=== PATIENT | female | born 1970 | race Caucasian/White ===

== ENCOUNTER 2022-01-11 12:16 | Emergency (ER) | payer OTHER, SELFPAY ==
--- NOTE | ~2022-01-11 | XR_ITS ---
EXAMINATION: XR CHEST CLINICAL INFORMATION: SOB COMPARISON: None TECHNIQUE: Frontal view of the chest was obtained. FINDINGS: No significant abnormality is noted involving the heart, lungs, mediastinum, bony thorax or soft tissues. XR/XR chest 1V IMPRESSION: Unremarkable chest examination.
[2022-01-11 12:22] VITALS: BP 140/80; BP 140/90; PULSE 83; PULSE 84; RESP 18; O2SAT 100; BMI 40.1
--- NOTE | 2022-01-11 12:46 | ECG_ITS ---
Test Reason : GENERAL MEDICAL Blood Pressure : / mmHG Vent. Rate : 088 BPM Atrial Rate : 088 BPM P-R Int : 152 ms QRS Dur : 076 ms QT Int : 390 ms P-R-T Axes : 012 012 029 degrees QTc Int : 471 ms Normal sinus rhythm Normal ECG No significant changes when compared with the previous EKG of 06 sep 2017 Referred By: Anisha Root Electronically Signed By:DAWN CORDOBA
--- NOTE | 2022-01-11 12:53 | ED.URI ---
HPI - URI/Sore Throat General Chief Complaint: Upper Respiratory Symptoms Stated Complaint: DIFF BREATHIN,+COVID Time Seen by Provider: 01/11/22 12:25 Source: patient and EMS Mode of arrival: EMS Limitations: no limitations History of Present Illness HPI Narrative: 51-year-old female with a history of anemia, high blood pressure here with reports of chest pressure, palpitations and difficulty breathing which occurred just prior to arrival and is now improving. Patient tells me that she started with nasal congestion, sore throat on Thursday. On Thursday. She did a home test which is positive for COVID. On she had a telehealth visit with her primary care doctor and was prescribed Paxlovid. Patient has taken 4 doses of Paxilovid at this point. She tells me that she has been doing well until today. She has had no difficulty breathing or chest pain or fever until this episode which occurred just prior to arrival. Patient tells me she was at rest when the symptoms started. She received some oxygen from the ambulance and tells me that this helps with her symptoms. no leg swelling or pain Received 1 J&J vaccine, 1 pfizer vaccine Related Data Allergies Allergy/AdvReac Type Severity Reaction Status Date / Time No Known Allergies Allergy Unverified 01/11/22 12:22 Review of Systems Review of Systems: Yes all other systems are reviewed and are negative Constitutional: Constitutional: Reports no additional constitutional complaints, Denies body ache(s), Denies chills, Denies fever(s), Denies headache(s) and Denies weakness Eyes: Eyes: Reports no additional eye complaints and Denies change in vision ENT: Reports system reviewed and no additional complaints, except as documented, Denies dizziness, Denies headache(s), Denies nasal congestion, Denies nasal discharge and Denies neck pain Cardiovascular: Cardiovascular: Reports no additional cardiovascular complaints, Reports chest pain, Denies leg edema, Reports palpitations and Denies dyspnea Respiratory: Respiratory: Reports no additional respiratory complaints, Denies cough and Denies dyspnea Gastrointestinal: Gastrointestinal: Reports no additional gastrointestinal complaints, Denies abdominal pain, Denies diarrhea, Denies nausea and Denies vomiting Genitourinary: Genitourinary: Reports no additional female genitourinary complaints and Denies urinary incontinence Musculoskeletal: Musculoskeletal: Reports no additional musculoskeletal complaints, Denies back pain, Denies arthralgias, Denies joint swelling, Denies neck pain, Denies numbness and Denies tingling Integumentary/Breasts: Skin/Breast: Reports system reviewed and no additional complaints, except as docu and Denies rash Neurologic: Reports system reviewed and no additional complaints, except as documented, Denies Abnormal speech present, Denies dizziness, Denies headache(s), Denies numbness, Denies tingling and Denies weakness Endocrine: Endocrine: Reports palpitations [facility] Past Medical History Attestation statement: The following information was validated with the patient. Source: old records reviewed and nursing notes reviewed Social History Social History Advance Directives: No Advance Directives Information Provided: No Physical Exam Vital Signs: Vital Signs: Last Vital Signs Pulse 83 01/11/22 12:22 Resp 18 01/11/22 12:22 BP 140/90 H 01/11/22 12:22 Pulse Ox 100 01/11/22 14:00 BMI result Body Mass Index 40.1 Const: General: cooperative, healthy appearing, comfortable and no acute distress Orientation/consciousness: patient oriented x3 Limitations: no limitations HEENT: Head: Yes normal to inspection Ears: hearing grossly normal bilaterally and TM's normal bilaterally General nose exam: Normal external nose present Face and sinus: Yes normal facial exam Mouth: Normal oral and palatal mucosa present Throat: Yes posterior oropharynx normal, Yes tonsils normal and Yes uvula midline Eyes: General: appearance normal, both eyes and all related structures Pupils: Equal, round and reactive pupils present Neck: Neck: Yes normal visual inspection Chest: Chest palpation & inspection: normal inspection of the chest Resp: Effort & Inspection: normal respiratory effort Auscultation: clear to auscultation bilaterally Cardio: Rate: regular rate Rhythm: regular rhythm Peripheral pulses: Peripheral pulses 2+ throughout GI: Inspection: Yes normal to inspection Palpation (GI): Soft to palpation and nontender Auscultation: normal bowel sounds Back/Spine/Pelvis: Thoracic/Lumbar Spine: thoracic and lumbar spine normal to inspection Skin: General skin exam: no rashes or lesions noted Neuro: General: patient oriented x3, no focal motor deficits and normal sensation to monofilament Cranial nerves: Yes Equal, round and reactive pupils present Cognition (Neuro): normal cognition Speech: No Abnormal speech present Gait exam (Neuro): Normal gait present Motor exam (neuro): 5/5 motor strength present throughout Extrem: General: Yes normal to inspection, Yes no pedal edema and Yes no calf tenderness Course Course Course Narrative: 51 yo female known COVID + here with episode of chest pain, palpitations, shortness of breath which occurred just [employer] and is now feeling better after receiving some supplemental oxygen by EMS. The patient's vitals are stable. She is speaking full sentences. Lungs are clear. Will check chest x-ray, EKG, labs. Reevaluation(s) Reevaluation #1: Labs are unremarkable. Chest x-ray and EKG showed no acute finding. Plan to repeat troponin and if negative anticipate discharge home. Time: 15:15 Reevaluation #2: Repeat troponin negative. Reviewed worrisome sign/symptoms with patient and when to return to ED. Comfortable with discharge home. Time: 17:00 MDM - URI/Sore Throat MDM Narrative Medical decision making narrative: Pneumonia, ACS(low concern with troponin negative x2, normal EKG) myocarditis, PE(low concern with negative D-dimer, no hypoxia, no tachypnea, no tachycardia and no clinical findings concerning for DVT) Medical Records Attestation: I reviewed the patient's medical records. Lab Data Attestation: I reviewed the patient's lab results. Result diagrams: 01/11/22 13:51 01/11/22 13:51 Labs: Lab Results 01/11/22 01/11/22 01/11/22 Range/Units 13:51 13:51 13:51 WBC 2.8 L (4.8-10.8) X10*3/uL RBC 3.92 L (4.20-5.50) X10*6/uL Hgb 11.2 L (12.0-16.0) g/dl Hct 33.7 L (37.0-47.0) % MCV 86.0 (80.0-98.0) fL MCH 28.6 (27.0-33.0) pg MCHC 33.2 (31.0-35.0) g/dl RDW 12.7 (11.0-16.0) % Plt Count 392 (160-400) X10*3/uL MPV 9.7 (9.4-12.3) fL Immature Gran % (Auto) 0.4 (0.0-0.4) % Neut % (Auto) 53.7 (45-73) % Lymph % (Auto) 33.7 (20-40) % [place] % (Auto) 9.3 (2-11) % Eos % (Auto) 2.5 (0-4) % Baso % (Auto) 0.4 (0-2) % Lymph # (Auto) 0.9 L (1.2-4.9) X10*3/uL [place] # (Auto) 0.3 (0.1-1.2) X10*3/uL Eos # (Auto) 0.1 (0.0-0.4) X10*3/uL Baso # (Auto) 0.0 (0.0-0.2) X10*3/uL Abs Immat Gran (auto) 0.01 (0.00-0.03) X10*3/uL Absolute Neuts (auto) 1.5 L (2.0-8.3) x10*3/uL Absolute Nucleated RBC 0.000 (0.0-0.012) X10*3/uL Nucleated RBC % (auto) 0.0 (0.0-0.2) /100WBC PT (9.9-13.0) SEC INR (0.9-1.1) D-Dimer High Sensitivty NG/ML Sodium 139 (135-145) mmol/L Potassium 3.4 (3.3-5.1) mmol/L Chloride 102 (96-108) mmol/L Carbon Dioxide 28 (22-29) mmol/L Anion Gap 12 (12-20) BUN 9 (9-16) mg/dL Creatinine 0.76 (0.5-1.4) mg/dL Estim Creat Clear Calc 99.2 Estimated GFR > 60 Random Glucose 104 (60-115) mg/dL Calcium 9.5 (8.4-10.2) mg/dL Magnesium 2.1 (1.6-2.6) mg/dL Total Bilirubin 0.2 (0.0-1.0) mg/dL Direct Bilirubin < 0.2 (0.0-0.5) mg/dL AST 17 (5-31) U/L ALT 22 (0-31) U/L Alkaline Phosphatase 51 (39-117) U/L Troponin I High Sens < 3.5 (<3.5-17.0) ng/L B-Natriuretic Peptide (<100) pg/mL Total Protein 7.3 (6.5-8.0) g/dL Albumin 4.0 (3.5-5.0) g/dL 01/11/22 01/11/22 01/11/22 Range/Units 13:51 13:51 16:15 WBC (4.8-10.8) X10*3/uL RBC (4.20-5.50) X10*6/uL Hgb (12.0-16.0) g/dl Hct (37.0-47.0) % MCV (80.0-98.0) fL MCH (27.0-33.0) pg MCHC (31.0-35.0) g/dl RDW (11.0-16.0) % Plt Count (160-400) X10*3/uL MPV (9.4-12.3) fL Immature Gran % (Auto) (0.0-0.4) % Neut % (Auto) (45-73) % Lymph % (Auto) (20-40) % [place] % (Auto) (2-11) % Eos % (Auto) (0-4) % Baso % (Auto) (0-2) % Lymph # (Auto) (1.2-4.9) X10*3/uL [place] # (Auto) (0.1-1.2) X10*3/uL Eos # (Auto) (0.0-0.4) X10*3/uL Baso # (Auto) (0.0-0.2) X10*3/uL Abs Immat Gran (auto) (0.00-0.03) X10*3/uL Absolute Neuts (auto) (2.0-8.3) x10*3/uL Absolute Nucleated RBC (0.0-0.012) X10*3/uL Nucleated RBC % (auto) (0.0-0.2) /100WBC PT 11.7 (9.9-13.0) SEC INR 1.0 (0.9-1.1) D-Dimer High Sensitivty < 150 NG/ML Sodium (135-145) mmol/L Potassium (3.3-5.1) mmol/L Chloride (96-108) mmol/L Carbon Dioxide (22-29) mmol/L Anion Gap (12-20) BUN (9-16) mg/dL Creatinine (0.5-1.4) mg/dL Estim Creat Clear Calc Estimated GFR Random Glucose (60-115) mg/dL Calcium (8.4-10.2) mg/dL Magnesium (1.6-2.6) mg/dL Total Bilirubin (0.0-1.0) mg/dL Direct Bilirubin (0.0-0.5) mg/dL AST (5-31) U/L ALT (0-31) U/L Alkaline Phosphatase (39-117) U/L Troponin I High Sens < 3.5 (<3.5-17.0) ng/L B-Natriuretic Peptide < 10 (<100) pg/mL Total Protein (6.5-8.0) g/dL Albumin (3.5-5.0) g/dL Imaging Data Chest x-ray: Attestation: I personally reviewed and interpreted this imaging study as follows: Radiologist's impression: EXAMINATION: XR CHEST CLINICAL INFORMATION: SOB COMPARISON: None TECHNIQUE: Frontal view of the chest was obtained. FINDINGS: No significant abnormality is noted involving the heart, lungs, mediastinum, bony thorax or soft tissues. XR/XR chest 1V IMPRESSION: Unremarkable chest examination. ? ECG Data Attestation: I personally reviewed and interpreted this ECG as follows: ECG interpretation date: 01/11/22 ECG interpretation time: 13:27 Interpretation: Normal sinus rhythm with a rate 88, normal OH, normal QRS, normal QT Discharge Plan Discharge Clinical Impression: COVID-19 Patient Disposition: Home, Self-Care Instructions: COVID-19 (Coronavirus Disease 2019) (ED) Additional Instructions: Continue your Paxlovid Increase fluids, rest Motrin or Tylenol for pain or fever as needed Your blood work, EKG and chest x-ray are all very reassuring today. Consider buying a pulse oximeter and monitor her oxygen saturation at home. Seek care your oxygen saturation is less than 90%, you have worsening shortness of breath or chest pain. Referrals: Physician,Unknown J [Primary Care Provider] - 1 week (as needed)
[2022-01-11 13:58] LABS: MANUAL DIFF FLAG NO
[2022-01-11 14:00] VITALS: O2SAT 100
[2022-01-11 14:01] LABS: Basophils Percent Auto 0.4 % (0-2); Eosinophils Absolute Auto 0.1 X10*3/uL (0.0-0.4); Eosinophils Percent Auto 2.5 % (0-4); Hematocrit 33.7 % (37.0-47.0); Hemoglobin 11.2 g/dl (12.0-16.0); Imm Gran Abs Auto 0.01 X10*3/uL (0.00-0.03); Imm Gran Pct Auto 0.4 % (0.0-0.4); Lymphocytes Absolute Auto 0.9 X10*3/uL (1.2-4.9); Lymphocytes Percent Auto 33.7 % (20-40); Mean Corpuscular HGB Conc 33.2 g/dl (31.0-35.0); Mean Corpuscular Hemoglobin 28.6 pg (27.0-33.0); Mean Platelet Volume 9.7 fL (9.4-12.3); Monocytes Absolute Auto 0.3 X10*3/uL (0.1-1.2); Monocytes Percent Auto 9.3 % (2-11); Neutrophils Absolute Auto 1.5 x10*3/uL (2.0-8.3); Neutrophils Percent Auto 53.7 % (45-73); Platelet Count 392 X10*3/uL (160-400); Red Blood Count 3.92 X10*6/uL (4.20-5.50); Red Cell Distribution Width 12.7 % (11.0-16.0); White Blood Count 2.8 X10*3/uL (4.8-10.8)
[2022-01-11 14:07] LABS: Prothrombin Time 11.7 SEC (9.9-13.0)
[2022-01-11 14:19] LABS: Alanine Aminotransferase 22 U/L (0-31); Alkaline Phosphatase 51 U/L (39-117); Anion Gap 12 (12-20); Aspartate Amino Transferase 17 U/L (5-31); Bilirubin Direct < 0.2 mg/dL (0.0-0.5); Bilirubin Total 0.2 mg/dL (0.0-1.0); Blood Urea Nitrogen 9 mg/dL (9-16); Calcium 9.5 mg/dL (8.4-10.2); Carbon Dioxide 28 mmol/L (22-29); Chloride 102 mmol/L (96-108); Creatinine Clr Calc Pharmacy 99.2; Estimated Glomerular Filt Rate > 60; Glucose Random 104 mg/dL (60-115); Magnesium 2.1 mg/dL (1.6-2.6); Potassium 3.4 mmol/L (3.3-5.1); Sodium 139 mmol/L (135-145); Total Protein 7.3 g/dL (6.5-8.0)
[2022-01-11 14:24] LABS: B Type Natriuretic Peptide < 10 pg/mL (<100); Troponin-I High Sensitivity < 3.5 ng/L (<3.5-17.0)
[2022-01-11 14:32] LABS: D Dimer High Sensitivity < 150 NG/ML
[2022-01-11 16:39] LABS: Troponin-I High Sensitivity < 3.5 ng/L (<3.5-17.0)
== END 2022-01-11 17:20 | disposition home or self-care (01) ==
PROVIDERS: Nurse Practitioner Family; Emergency Provider Emergency Medicine Emergency Medical Services
DX: U07.1 COVID-19 (principal); R06.02 Shortness of breath; R07.89 Other chest pain; R00.2 Palpitations; Z79.899 Other long term (current) drug therapy
CPT/HCPCS: 36415; 71045; 80048; 80076; 83735; 83880; 84484; 85025; 85379; 85610; 93005; 99283; 99284

== ENCOUNTER 2023-11-13 19:11 | Emergency (ER) | payer OTHER, SELFPAY ==
--- NOTE | ~2023-11-13 | US_ITS ---
EXAMINATION: US ABDOMEN LIMITED CLINICAL INFORMATION: Right upper quadrant pain. History of gallstones. COMPARISON: None available. TECHNIQUE: Real-time imaging of the right upper quadrant abdominal viscera. Color Doppler exam was utilized FINDINGS: PANCREAS: Bowel gas LIVER: There is diffuse increased echogenicity of the parenchyma of liver consistent with fatty change. No focal hepatic lesion. There is no intrahepatic biliary duct dilatation seen. GALLBLADDER: Gallstones fill the gallbladder. Gallbladder is contracted. There is strong posterior acoustic shadowing. No pericholecystic fluid. COMMON BILE DUCT: Normal in caliber measuring 0.2 cm in diameter. RIGHT KIDNEY: Normal. No hydronephrosis. No renal calculi or focal parenchymal lesions. The kidney measures 10.7 cm in maximum dimension. FREE FLUID: None. US/US abdomen limited IMPRESSION: 1. Diffuse fatty change of liver. 2. Cholelithiasis. No acute change of gallbladder wall. No bile duct dilatation.
--- NOTE | 2023-11-13 19:14 | ECG_ITS ---
Test Reason : chest pain Blood Pressure : / mmHG Vent. Rate : 095 BPM Atrial Rate : 095 BPM P-R Int : 152 ms QRS Dur : 076 ms QT Int : 366 ms P-R-T Axes : 048 023 041 degrees QTc Int : 459 ms Normal sinus rhythm Septal infarct , age undetermined Abnormal ECG When compared with ECG of 11-JAN-2022 13:27, No significant change was found Referred By: Rosa Maria Bond Electronically Signed By:DAWN CORDOBA
--- NOTE | 2023-11-13 19:35 | ED_ITS ---
HPI - Abdominal Pain General Chief Complaint: Abdominal Pain Stated Complaint: chest and back pain, SOB Time Seen by Provider: 11/13/23 22:08 History of Present Illness HPI narrative: The patient is a 53-year-old woman who says that she has been having problems with right upper quadrant abdominal pain for almost 2 months. She says that she started to experience these symptoms at the end of August. She made an appointment with her primary care doctor to discuss these symptoms and ultimately had a CT scan done through [facility] that was done last week. This showed gallstones and a fatty liver she says. During these weeks she says that she has had near constant pain in the right upper quadrant that is worse when she eats. Over the last 4 days the pain has been much more constant and severe and she therefore apartment tonight because it was significantly worse. He is that she feels the pain in the right upper quadrant of her abdomen and in her epigastrium. She also feels that it is somewhat worse when she takes a deep breath. She says that essentially constant pain for a long time. Related Data Home Medications Medication Instructions Recorded Confirmed ferrous sulfate 325 mg (65 mg 325 mg PO DAILY 11/18/23 11/18/23 iron) tablet (Feosol) triamterene 37.5 1 tab PO DAILY 11/18/23 11/18/23 mg-hydrochlorothiazide 25 mg tablet Previous Rx's Medication Instructions Recorded morphine 15 mg immediate release 15 mg PO Q6H PRN pain #12 tabs 11/14/23 tablet Allergies Allergy/AdvReac Type Severity Reaction Status Date / Time latex AdvReac Unknown Verified 11/18/23 13:26 Review of Systems Review of Systems Yes all other systems are reviewed and are negative [facility] Past Medical History Surgical History H/O bilateral breast reduction surgery (~2011) Family History Family History Mother Cancer Father Cancer Family/Other Cancer Social History Social History Alcohol intake: never Patient Tobacco Use Status: Never used Tobacco Physical Exam ED Vital Signs: Vital Signs - 24 hr 11/13/23 19:38 11/13/23 21:59 11/14/23 00:08 Temperature 97.8 F 98.3 F 98.4 F Pulse Rate 99 88 84 Respiratory Rate 16 18 16 Blood Pressure 153/88 H 150/95 H 149/95 H Pulse Oximetry 96 99 100 Oxygen Delivery Method Room Air Room Air Room Air 11/14/23 01:14 Temperature 98.1 F Pulse Rate 90 Respiratory Rate 17 Blood Pressure 143/92 H Pulse Oximetry 94 Oxygen Delivery Method Room Air BMI result Body Mass Index 42.6 Const Other: The patient is awake and alert. She does not appear overtly toxic or in distress. She does not seem in any respiratory difficulty. She does not look obviously uncomfortable HENND Other: The face is symmetrical. ?Mucous membranes moist. Eyes Other: Pupils are round equal, conjunctivae are clear, extraocular movements intact Neck Other: No JVD Resp Effort & Inspection: normal respiratory effort Auscultation: clear to auscultation bilaterally Cardio Rate: regular rate Rhythm: regular rhythm Heart sounds: S1 normal heart sound present and S2 normal heart sound present GI Other: The patient has a right upper quadrant and epigastric tenderness Skin Other: Skin is dry and unremarkable Neuro Other: Awake, alert, normal mental status, grossly neurologically intact Extrem Other: No obvious calf asymmetry or unilateral tender Course Course Course Narrative: This is a rapid medical exam: Additional HPI, ROS, PE not included below will be deferred to primary provider. RUQ abdominal pain radiating from right anterior to posterior ribs causing shortness of breath and chest pain. States that her pain has been increased today. She also reports concerns for BRBPR with known hemorrhoids and anal fissure. Reports increased diarrhea over the past several days. CT abd/pelvis completed several days ago with cholelithiasis noted without cholecystitis. Medical Decision Making Medical Decision Making [facility] Narrative: The patient is here with right upper quadrant pain that certainly could represent pain related to gallstones. She describes having had right upper quadrant pain for several weeks and an outpatient CT scan last week that showed gallstones. However the patient is description, particularly the timing of her symptoms, does not seem completely consistent with typical biliary colic. Her pain seems very constant rather than occasional and intermittent. An ultrasound today shows gallstones but no signs of cholecystitis or other acute complication. Her lipase is normal, her LFTs are normal. Her white count and differential are normal. CRP is only minimally elevated. Ultimately I also ran a D-dimer as well. This was undetectable. Ultimately, although the patient has description of the time course of her symptoms is atypical for biliary colic I suspect that her symptoms may be related to her gallstones. She looks well enough for outpatient management. She will be given a prescription for oxycodone that she may use as needed. She should follow a low-fat diet and take it easy. She should contact the General surgery office on Thursday to discuss a possible cholecystectomy. Lab Data 11/13/23 19:32 11/13/23 19:32 Labs: Lab Results 11/13/23 11/13/23 Range/Units 19:32 23:24 WBC 5.2 (4.8-10.8) X10*3/uL RBC 3.57 L (4.20-5.50) X10*6/uL Hgb 10.5 L (12.0-16.0) g/dl Hct 31.0 L (37.0-47.0) % MCV 86.8 (80.0-98.0) fL MCH 29.4 (27.0-33.0) pg MCHC 33.9 (31.0-35.0) g/dl RDW 13.5 (11.0-16.0) % Plt Count 399 (160-400) X10*3/uL MPV 9.6 (9.4-12.3) fL Immature Gran % (Auto) 0.4 (0.0-0.4) % Neut % (Auto) 59.1 (45-73) % Lymph % (Auto) 30.8 (20-40) % [place] % (Auto) 6.0 (2-11) % Eos % (Auto) 3.3 (0-4) % Baso % (Auto) 0.4 (0-2) % Lymph # (Auto) 1.6 (1.2-4.9) X10*3/uL [place] # (Auto) 0.3 (0.1-1.2) X10*3/uL Eos # (Auto) 0.2 (0.0-0.4) X10*3/uL Baso # (Auto) 0.0 (0.0-0.2) X10*3/uL Abs Immat Gran (auto) 0.02 (0.00-0.03) X10*3/uL Absolute Neuts (auto) 3.1 (2.0-8.3) x10*3/uL Absolute Nucleated RBC 0.000 (0.0-0.012) X10*3/uL Nucleated RBC % (auto) 0.0 (0.0-0.2) /100WBC D-Dimer High Sensitivty < 150 NG/ML Sodium 139 (135-145) mmol/L Potassium 3.5 (3.3-5.1) mmol/L Chloride 103 (96-108) mmol/L Carbon Dioxide 27 (22-29) mmol/L Anion Gap 13 (12-20) BUN 13 (9-16) mg/dL Creatinine 0.86 (0.5-1.4) mg/dL Estim Creat Clear Calc 88.6 Estimated GFR > 60 Random Glucose 109 (60-115) mg/dL Calcium 9.7 (8.4-10.2) mg/dL Total Bilirubin 0.2 (0.0-1.0) mg/dL AST 15 (5-31) U/L ALT 18 (0-31) U/L Alkaline Phosphatase 45 (39-117) U/L Troponin I High Sens < 2.7 (<3.5-17.0) ng/L C-Reactive Protein 1.05 H (< or = 0.50) mg/dL Total Protein 7.1 (6.5-8.0) g/dL Albumin 4.1 (3.5-5.0) g/dL Lipase 17 (8-78) U/L Urine Color Yellow Urine Appearance Cloudy Urine pH 6.0 (5.0-9.0) Ur Specific [place] 1.025 (1.005-1.025) Urine Protein Negative (Neg-Trace) mg/dL Urine Glucose (UA) Negative (Negative) mg/dL Urine Ketones Negative (Negative) mg/dL Urine Blood Negative (Negative) Urine Nitrite Negative (Negative) Ur Leukocyte Esterase Trace H (Negative) Urine RBC 0-2 (0-2) /HPF Urine WBC 6-10 H (0-5) /HPF Ur Squamous Epith Cells 11-20 (0-2) /HPF Urine Bacteria 3+ (None Seen) Hyaline Casts 3-5 (0-2) /LPF Medications Administered Discontinued Medications Generic Name Dose Route Start Last Admin Trade Name Freq PRN Reason Stop Dose Admin Acetaminophen 650 mg 11/13/23 19:43 11/13/23 19:49 Acetaminophen 325 Mg Tablet PO 11/13/23 19:44 650 mg ONCE ONE Administration Ibuprofen 600 mg 11/13/23 19:43 11/13/23 19:49 Ibuprofen 600 Mg Tablet PO 11/13/23 19:44 600 mg ONCE ONE Administration Ketorolac Tromethamine 30 mg 11/13/23 22:33 11/13/23 23:40 Ketorolac Tromethamine 30 Mg/Ml Vial IM 11/13/23 22:34 30 mg ONCE ONE Administration Discharge Plan Discharge Clinical Impression: Symptomatic cholelithiasis, Right upper quadrant abdominal pain Patient Disposition: Home, Self-Care Instructions: Gallstones (ED) Additional Instructions: Your ultrasound today confirms that you have gallstones. There is no sign of complications of these gallstones today Additionally there is no suggestion of any other concerning process. Please continue to follow a low-fat diet and eat very small meals. You may use acetaminophen and ibuprofen as needed for discomfort. I have also sent a prescription for morphine tablets which you may use when you really need additional pain control. Please call Dr. Lagos's office on Thursday to set up an appointment to discuss your situation with the general surgeon. Return to the emergency room if fever or significantly worse otherwise. Prescriptions: New morphine 15 mg tablet 15 mg PO Q6H PRN (Reason: pain) Qty: 12 0RF Rx Instructions: Partial Fill upon patient request. No Action triamterene-hydrochlorothiazid 37.5-25 mg tablet 1 tab PO DAILY ferrous sulfate [Feosol] 325 mg (65 mg iron) tablet 325 mg PO DAILY Referrals: Alejandro Lagos MD [Physician] - (symptomatic cholelithiasis) Gladys Blanco MD [Physician] - (symptomatic cholelithiasis) Stand Alone Forms: Work/School Release Interventions: ED Discharge Assessment Last Done: 11/14/23 01:14 Discharge Date/Time: 11/14/23 01:16
[2023-11-13 19:37] LABS: MANUAL DIFF FLAG NO
[2023-11-13 19:38] VITALS: BP 153/88; PULSE 99; RESP 16; TEMP 36.6; O2SAT 96; BMI 42.6
[2023-11-13 19:38] LABS: Basophils Percent Auto 0.4 % (0-2); Eosinophils Absolute Auto 0.2 X10*3/uL (0.0-0.4); Eosinophils Percent Auto 3.3 % (0-4); Hemoglobin 10.5 g/dl (12.0-16.0); Imm Gran Abs Auto 0.02 X10*3/uL (0.00-0.03); Imm Gran Pct Auto 0.4 % (0.0-0.4); Lymphocytes Absolute Auto 1.6 X10*3/uL (1.2-4.9); Lymphocytes Percent Auto 30.8 % (20-40); Mean Corpuscular HGB Conc 33.9 g/dl (31.0-35.0); Mean Corpuscular Hemoglobin 29.4 pg (27.0-33.0); Mean Corpuscular Volume 86.8 fL (80.0-98.0); Mean Platelet Volume 9.6 fL (9.4-12.3); Monocytes Absolute Auto 0.3 X10*3/uL (0.1-1.2); Neutrophils Absolute Auto 3.1 x10*3/uL (2.0-8.3); Neutrophils Percent Auto 59.1 % (45-73); Platelet Count 399 X10*3/uL (160-400); Red Blood Count 3.57 X10*6/uL (4.20-5.50); Red Cell Distribution Width 13.5 % (11.0-16.0); White Blood Count 5.2 X10*3/uL (4.8-10.8)
--- NOTE | 2023-11-13 19:38 | MHC.EDTECH ---
Patient ekg taken and was read by Provider ,blood drawn and sent to lab .
[2023-11-13] MEDS: Ibuprofen 600 MG TABLET PO (19:49)
[2023-11-13] MEDS: Acetaminophen 325 MG TABLET 650 MG PO (19:49)
[2023-11-13 19:52] LABS: Alanine Aminotransferase 18 U/L (0-31); Albumin Level 4.1 g/dL (3.5-5.0); Alkaline Phosphatase 45 U/L (39-117); Anion Gap 13 (12-20); Aspartate Amino Transferase 15 U/L (5-31); Bilirubin Total 0.2 mg/dL (0.0-1.0); Blood Urea Nitrogen 13 mg/dL (9-16); Calcium 9.7 mg/dL (8.4-10.2); Carbon Dioxide 27 mmol/L (22-29); Chloride 103 mmol/L (96-108); Creatinine Clr Calc Pharmacy 88.6; Estimated Glomerular Filt Rate > 60; Glucose Random 109 mg/dL (60-115); Potassium 3.5 mmol/L (3.3-5.1); Sodium 139 mmol/L (135-145); Total Protein 7.1 g/dL (6.5-8.0)
[2023-11-13 20:00] LABS: Troponin-I High Sensitivity < 2.7 ng/L (<3.5-17.0)
[2023-11-13 21:59] VITALS: BP 150/95; PULSE 88; RESP 18; TEMP 36.8; O2SAT 99
[2023-11-13 22:50] LABS: C Reactive Protein 1.05 mg/dL (< or = 0.50); Lipase 17 U/L (8-78)
[2023-11-13 23:30] LABS: Appearance Urine Cloudy; Color Urine Yellow; Glucose Urine UA Negative (Negative); Leukocyte Esterase Urine Trace (Negative); Nitrite Urine Negative (Negative); Specific Gravity - Urine 1.025 (1.005-1.025); UMIC TRIGGER UACC YES; Urine Blood Negative (Negative); Urine Ketones Negative (Negative); Urine Protein Negative (Neg-Trace)
[2023-11-13 23:32] LABS: Bacteria Urine 3+ (None Seen); RBC Urine 0-2 /HPF (0-2); UACC Culture Trigger YES
[2023-11-13] MEDS: Ketorolac Tromethamine 30 MG/ML VIAL IM (23:40)
[2023-11-14 00:08] VITALS: BP 149/95; PULSE 84; RESP 16; TEMP 36.9; O2SAT 100
[2023-11-14 00:09] LABS: D Dimer High Sensitivity < 150 NG/ML
[2023-11-14 01:14] VITALS: BP 143/92; PULSE 90; RESP 17; TEMP 36.7; O2SAT 94
== END 2023-11-14 01:16 | disposition home or self-care (01) ==
PROVIDERS: Nurse Practitioner Family; Emergency Provider Emergency Medicine
DX: K80.20 Calculus of gallbladder without cholecystitis without obstruction (principal)
CPT/HCPCS: 36415; 76705; 80053; 81001; 83690; 84484; 85025; 85379; 86140; 87086; 93005; 96372; 99284; J1885

== ENCOUNTER → 2023-11-13 19:14 | Outpatient (BNV) | payer OTHER, SELFPAY | PROVIDERS: Emergency Provider Emergency Medicine; Visit Provider Internal Medicine | DX: R07.9 Chest pain, unspecified (principal); R94.31 Abnormal electrocardiogram [ECG] [EKG] | CPT/HCPCS: 93010 ==

== ENCOUNTER 2023-11-18 12:46 | Outpatient (AMB) | payer OTHER, SELFPAY ==
--- NOTE | 2023-11-18 13:08 | A.OFFVIS_ITS ---
Intake Vital Signs 11/18/23 13:22 Height 5 ft 3 in Weight 240 lb 4.862 oz BMI 42.6 BP 142/63 H Blood Pressure Location Lt brachial Position Sitting Pulse 89 Intake Visit Reasons: Gallstones Intake Note: This patient presents for [facility] ER follow-up for gallstones. Patient c/o; reports RUQ pain radiates towards back and right shoulder, reports nausea. Film Cutter Required: No Accompanied by: Other Relationship Allergies latex Adverse Reaction (Verified 11/18/23 13:26) Unknown Medication List - Last Reconciled 11/18/23 by Alejandro Lagos MD ferrous sulfate (Feosol) 325 mg PO DAILY morphine 15 mg PO Q6H PRN triamterene-hydrochlorothiazid 37.5-25 mg 1 tab PO DAILY HPI Gallstones HPI Details 53[facility] last 11/13/2023 because of right upper quadrant pain and epigastric pain. She was diagnosed to have gallstones based on ultrasound findings. She has had this issue on and off for about 3 months now. She says that she has had difficulty with undergoing workup with her primary care physician for this she decided to go to the ER last week because of this episodic pain. She denies any nausea or vomiting. PFSH Surgical History H/O bilateral breast reduction surgery (~2011) Family History Mother Cancer Father Cancer Family/Other Cancer Social History Alcohol intake: never Patient Tobacco Use Status: Never used Tobacco Review of Systems Const Denies chills and Denies fever(s) Card Denies chest pain, Denies dyspnea and Denies dyspnea on exertion Resp Denies cough, Denies dyspnea and Denies dyspnea on exertion GI Denies hematochezia and Denies change in bowel habits Denies hematuria Musc Denies back pain and Denies limited range of motion Neuro Denies focal weakness and Denies convulsions Psych Denies depression and Denies mood swings Physical Exam Vital Signs: Last Vital Signs Pulse 89 11/18/23 13:22 BP 142/63 H 11/18/23 13:22 BMI result Body Mass Index 42.6 Const Other: Morbidly obese General: comfortable and no acute distress Orientation/consciousness: patient oriented x3 Neck Neck: Yes no lymphadenopathy Resp Auscultation: clear to auscultation bilaterally Cardio Rhythm: regular rhythm GI Palpation (GI): Soft to palpation, nontender and no guarding Neuro General: patient oriented x3 Assessment & Plan Assessment & Plan (1) Symptomatic cholelithiasis: Code(s): K80.20 - Calculus of gallbladder without cholecystitis without obstruction Plan: She had an ultrasound last week in the ER showing gallstones. She describes having periodic right upper quadrant pain and tenderness for about 3 months now. She therefore wants to proceed with cholecystectomy. I had a long discussion with her about the technique of laparoscopic cholecystectomy and possible open cholecystectomy. I reviewed the risks including but not limited to bleeding, infections, bowel injury, injury to other organs including the liver and the bile duct, bile leak, retained stones, as well as the benefits and alternatives. Understands that she has high perioperative risks in view of her morbid obesity. She says that because of her worsening symptoms, she wants to proceed with cholecystectomy. Coding Level of Care Code New Pt Level 3 (71676) Diagnoses Symptomatic cholelithiasis K80.20
[2023-11-18 13:22] VITALS: BP 142/63; PULSE 89; BMI 42.6
== END 2023-11-18 13:57 | disposition home or self-care (01) ==
PROVIDERS: Visit Provider Surgery
DX: K80.20 Calculus of gallbladder without cholecystitis without obstruction (principal)
CPT/HCPCS: 99203

== ENCOUNTER → 2023-11-18 12:46 | Outpatient (BNVA) | payer OTHER, SELFPAY | PROVIDERS: Visit Provider Surgery ==

== ENCOUNTER 2023-11-25 08:38 | Day surgery (SDC) | payer OTHER, SELFPAY ==
--- NOTE | 2023-11-23 13:40 | HO.ANESPROP2 ---
Documented by User: Izabella Owusu NP 11/23/23 13:41 HPI - Anesthesia Eval Consult details Narrative: 53yo F for Cholecystectomy Laparoscopic,possible open PMFSH Active Problems Active Problems: All Active Problems (Updated 11/19/23 @ 05:30 by Maricruz Garcia) COVID-19 (Acute) Family History Family History Mother Cancer Father Cancer Family/Other Cancer Surgical History Surgical History H/O bilateral breast reduction surgery (~2011) Social History Social History Alcohol intake: never Patient Tobacco Use Status: Never used Tobacco Use of substances other than those prescribed or required for medical reasons: No Are you DNR?: No Advance Directives: No Advance Directives Information Provided: Yes Meds Allergies Allergy/AdvReac Type Severity Reaction Status Date / Time latex AdvReac Unknown Verified 11/18/23 13:26 Home Medications Medication Instructions Recorded Confirmed Last Taken Type ferrous sulfate 325 mg (65 mg 325 mg PO DAILY 11/18/23 11/25/23 Unknown History iron) tablet (Feosol) triamterene 37.5 1 tab PO DAILY 11/18/23 11/25/23 Unknown History mg-hydrochlorothiazide 25 mg tablet Exam Pertinent Lab Results Pertinent Lab Results: Laboratory Tests 11/13/23 19:32 WBC 5.2 Hgb 10.5 L Hct 31.0 L Plt Count 399 Sodium 139 Potassium 3.5 Chloride 103 Carbon Dioxide 27 BUN 13 Creatinine 0.86 Narrative Narrative: EKG 10/2023 Vent. Rate : 095 BPM Atrial Rate : 095 BPM P-R Int : 152 ms QRS Dur : 076 ms QT Int : 366 ms P-R-T Axes : 048 023 041 degrees QTc Int : 459 ms Normal sinus rhythm Septal infarct , age undetermined Abnormal ECG When compared with ECG of 11-JAN-2022 13:27, No significant change was found Assessment and Plan Assessment Anesthesia Assessment: Chart Reviewed Documented by User: Franck Jung MD 11/25/23 10:29 PMFSH Family History Family History Mother Cancer Father Cancer Family/Other Cancer Family history of problems with anesthesia: No Surgical History Surgical History H/O bilateral breast reduction surgery (~2011) History of Problems with Anesthesia: No Social History Social History Alcohol intake: never Patient Tobacco Use Status: Never used Tobacco Use of substances other than those prescribed or required for medical reasons: No Are you DNR?: No Advance Directives: No Advance Directives Information Provided: Yes Meds Allergies Allergy/AdvReac Type Severity Reaction Status Date / Time latex AdvReac Unknown Verified 11/18/23 13:26 Home Medications Medication Instructions Recorded Confirmed Last Taken Type ferrous sulfate 325 mg (65 mg 325 mg PO DAILY 11/18/23 11/25/23 Unknown History iron) tablet (Feosol) triamterene 37.5 1 tab PO DAILY 11/18/23 11/25/23 Unknown History mg-hydrochlorothiazide 25 mg tablet Exam Airway Mallampati Class: II (small mouth, very anterior) TM Dist: <=3cm Neck ROM: Full Heart: ok Lungs: ok Assessment and Plan Assessment Anesthesia Assessment: Anesthesia Plan Discussed Final Anesthetic Review Family History of Problems with Anesthesia: No History of Problems with Anesthesia: No NPO: Yes ASA Class: III Final Preanesthetic Review: No Changes in Pt Med Stat, Meds/Allgs Chart Reviewed, Consent Obtained/Reviewed and Anes Risks/Benef Reviewed Patient Risk: Intermediate Procedure Risk: Intermediate Anesthetic Plan Anesthetic Plan: GA and Agree w/ Assess. and Plan Disposition: Standard PACU
[2023-11-25] VITALS (12 sets, daily range): BP systolic 134–153; BP diastolic 62–86; PULSE 63–87; RESP 16–20; TEMP 36.2–36.3; O2SAT 94–100; BMI 42.6
[2023-11-25] MEDS: Lactated Ringers 1,000 ML 100 ML IVCONT (10:09)
--- NOTE | 2023-11-25 10:35 | MHC.SHP ---
Pre-Procedural Eval Section A - 24 Hr Update-Section A only Date of Service: 11/25/23 The patient is an INPATIENT: No Changes since office visit: No Cold of Flu in the past 2 weeks, No New Medical Problems, No Changes in Medication and No Patient answered all questions The patient has been examined within 24 hours of the surgical procedure. The History & Physical has been completed within 30 days and I have reviewed it.: Yes Section B - Complete if H&P > 30 days Chief Complaint: Calculus of gallbladder without cholecystitis Allergies: Allergies Allergy/AdvReac Type Severity Reaction Status Date / Time latex AdvReac Unknown Verified 11/18/23 13:26 Plan I have reviewed the history and physical and performed a pertinent physical examination on my patient. No changes have occurred unless specified. Time Spent With Patient Time: Total time managing care of this patient today ____ minutes.
--- NOTE | 2023-11-25 12:02 | W.PM.OPN ---
Operative Note Operative Note Date of Service: 11/25/23 Narrative: Preop diagnosis: Symptomatic gallstones Postop diagnosis: Subacute cholecystitis with impacted stone in the neck Procedure: Laparoscopic cholecystectomy Surgeon: Alejandro Lagos MD clinical lab assistant: RIGOBERTO Saavedra The patient is a 53 year female with known gallstones, and was in the ER last week for right upper quadrant pain. I would seen her in the office and because of her persistent symptoms, schedule her for cholecystectomy this week. She understood the technique of the planned procedure as well as the risks, benefits, and alternatives She was brought to the operating room. She was placed supine under general anesthesia via endotracheal tube. The abdomen was prepped and draped in the usual sterile fashion. A surgical time-out was done. The patient received Cefotan 2 g IV preoperatively. I made a short supraumbilical incision using a blade 15. This was carried down through the full-thickness of the skin and subcutaneous fat . It is noted that the patient is morbidly obese and had a very thick amount of subcutaneous fat. We are eventually able to visualize the fascia. This was grasped with Sohail clamps. This was incised and the peritoneum was entered. Through this incision and Snyder port was introduced. Pneumoperitoneum was introduced to a pressure of 15 mm Hg. From here on the rest of the procedure was done under vision with the 10 mm laparoscopic With laparoscopic visualization, inserted a 5/12 port in the epigastric area below the subcostal margin. Two 5 mm ports were introduced small incisions below the subcostal margin along the anterior axillary line and the midclavicular line per graspers were placed through the working ports. The patient was placed in head up and [id number] position. The gallbladder was seen. This was I will indurated and had adhesions surrounding the anterior wall as well as the neck. We were able to apply a grasper towards the fundus to retract this cephalad. I proceeded to carefully tease the adhesions off of the anterior wall. There was note of an impacted stone in the neck. We were unable to apply a grasper on this so during this time, we were retracting the gallbladder with only 1 retracted the fundus. We were using another grasper to orient the gallbladder so as to expose more of the neck. I continued to gently dissect the neck of the gallbladder until I was able to see what appeared to be the cystic duct. We gently dissected the cystic duct with [place] dissector to confirm its confluence of the neck of the gallbladder. We still could not move the impacted stone at the neck so we had to continue to do dissection without a 2nd retractor on the gallbladder as could not apply this in view of the thickened gallbladder wall By carefully retracting the gallbladder and looking at both medial and lateral aspect, I was able to confirmed confluence of the neck of the gallbladder with the cystic duct. Furthermore, I was able to see what appeared to be a small cystic artery right next to this. There was note of thickened indurated fat in the hilum. However there were no other structures that seemed to be leading away from the gallbladder itself I therefore applied clips on the cystic duct with 2 clips applied distally. The cystic duct was transected between clips with Endo scissors. I applied clips on the cystic artery as well with 2 clips applied distally and the cystic artery was transected between clips with scissors We continuing traction in the gallbladder away from the liver bed and pushing the neck away from the bed itself using the retractor, I proceeded to continue to gently dissect the hilum. However during the dissection, we noticed a large vessel running with the hilum to the wall of the gallbladder. This seemed to be the actual cystic artery that was dilated. This seemed to be surrounded by indurated fat as well making the diameter larger. We carefully dissected this and this did appear to go into the gallbladder. The therefore applied clips with 3 clips applied distally and the cystic artery was transected been clips with Endo scissors We continued to apply traction the gallbladder away from the liver bed and dissected through the peritoneum of the gallbladder wall . We gently find the plane of dissection between the thickened gallbladder wall and the liver bed and carefully the gallbladder along this plane with a combination of the tip of the electrocautery spatula as well as electrocautery itself we we proceeded gently until the entire gallbladder completely and this was retrieved through the endobag through the epigastric port I inserted the ports and re-insufflated. I examined the subhepatic space. There was no evidence of any bile leak. There was no significant bleeding as well. However, in view of the oozing in the had, I proceeded to apply Surgicel. I observed for a minute and there was no significant bleeding. I observed all 4 quadrants. There was no other pathology or any evidence of bowel injury I re-examined the subhepatic space. Once this appeared to be hemostatic, I proceeded to desufflated the port sites. The ports were removed with the umbilical port was removed last. The fascia of the umbilical incision was closed with a [id number] Polysorb 0 stitch. Skin closure was achieved on all incisions using Polysorb 4-0 subcuticular running sutures. All incisions were infiltrated with Marcaine 0.5% for postop analgesia. Dressings were applied the procedure was completed The patient tolerated procedure well. There were no immediate complications. Initial final counts of sponges and instruments were correct. Estimated blood loss was about 50 cc The patient was extubated without difficulty and transferred to the recovery room with stable vital signs.
[2023-11-25] MEDS: Acetaminophen 1,000 MG/100 ML PIGGYBACK 400 MG IV (12:29)
[2023-11-25] MEDS: fentaNYL citrate/PF 100 MCG/2 ML VIAL 50 MCG IVPUSH ×2 (12:47→13:08)
[2023-11-25] MEDS: Ondansetron ODT 4 MG TAB.RAPDIS TRANSLINGU (13:48)
== END 2023-11-25 14:09 | disposition home or self-care (01) ==
PROVIDERS: Visit Provider Surgery
PROC: 0FT44ZZ Resection of Gallbladder, Percutaneous Endoscopic Approach (ICD-10-PCS; CPT 47562; principal; 2023-11-25 10:30)
DX: K80.10 Calculus of gallbladder with chronic cholecystitis without obstruction (principal); E66.01 Morbid (severe) obesity due to excess calories; Z68.41 Body mass index [BMI] 40.0-44.9, adult
CPT/HCPCS: 47562; 86850; 86900; 86901; 88304; J0131; J0665; J1885; J2250; J2405; J2704; J3010

== ENCOUNTER → 2023-11-25 08:38 | Outpatient (BNV) | payer OTHER, SELFPAY | PROVIDERS: Visit Provider Surgery | DX: K80.20 Calculus of gallbladder without cholecystitis without obstruction (principal) | CPT/HCPCS: 47562 ==

== ENCOUNTER 2023-12-09 09:03 | Outpatient (AMB) | payer OTHER, SELFPAY ==
--- NOTE | 2023-12-09 09:51 | A.OFFVIS_ITS ---
Intake Intake Visit Reasons: S/P lap bakari Intake Note: This patient presents for a post-op assessment status post laparoscopic cholecystectomy. Pt c/o; reports had a recent fall, reports concern with LLQ incision. Lap bakari:11/25/2023 Newspaper Carrier Required: No Accompanied by: Spouse Allergies latex Adverse Reaction (Verified 12/09/23 10:15) Unknown HPI S/P lap bakari HPI Details She had undergone laparoscopic cholecystectomy for an impacted stone in the neck. She tolerated the procedure well and was discharged home on the same day. She says she has been doing well at home. She has good oral intake. She admits that she had fallen at home because of bad knee. She is able to ambulate well. [facility] Medical History (Updated 12/09/23 @ 10:34 by Alejandro Lagos MD) Gallstone Surgical History History of laparoscopic cholecystectomy (~11/25/23) H/O bilateral breast reduction surgery (~2011) Family History Mother Cancer Father Cancer Family/Other Cancer Social History Alcohol intake: never Patient Tobacco Use Status: Never used Tobacco Review of Systems Const Denies chills and Denies fever(s) Card Denies chest pain, Denies dyspnea and Denies dyspnea on exertion Resp Denies cough, Denies dyspnea and Denies dyspnea on exertion GI Denies hematochezia and Denies change in bowel habits Denies hematuria Musc Denies back pain and Denies limited range of motion Neuro Denies focal weakness and Denies convulsions Psych Denies depression and Denies mood swings Physical Exam Const Other: Appears obese General: comfortable and no acute distress Resp Effort & Inspection: normal respiratory effort GI Other: All incisions are clean, dry and well healed Palpation (GI): Soft to palpation, not firm and nontender Assessment & Plan Assessment & Plan (1) Gallstone: Code(s): K80.20 - Calculus of gallbladder without cholecystitis without obstruction Plan: Status post laparoscopic cholecystectomy. She is doing very well. All incisions are well healed. I advised her to avoid lifting anything more than 20 lb for at least 3 more weeks. She can otherwise follow up a p.r.n. basis. Her path report shows chronic cholecystitis with gallstones. Coding Level of Care Code Global (03781) Diagnoses Gallstone K80.20
== END 2023-12-09 10:35 | disposition home or self-care (01) ==
PROVIDERS: PCP Family Medicine; Visit Provider Surgery
DX: K80.20 Calculus of gallbladder without cholecystitis without obstruction (principal)
CPT/HCPCS: 99024

== ENCOUNTER → 2023-12-09 09:03 | Outpatient (BNVA) | payer OTHER, SELFPAY | PROVIDERS: PCP Family Medicine; Visit Provider Surgery ==

== ENCOUNTER 2023-12-14 12:51 | Outpatient (AMB) | payer OTHER, SELFPAY ==
--- NOTE | 2023-12-14 13:17 | MHC.PC.OV ---
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 Had recent gallbladder removal. 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 She is transferring from [facility]. She is very frustrated with the current healthcare system and was recently seen by her previous pcp for ruq abdominal pain and had ct abdomen and pelvis which noted fatty liver and gallstones. She has a hx of htn, hyperlipidemia, JOSHUA, OA bilateral knees, chronic lumbar pain, fatty liver and gallstones. She states She was seen recently 11/18/23 in the ED and dx with acute cholecystitis and is s/p lap cholecystectomy. She states Dr. Lagos told her to lose weight. She states that today is day one of her fruit smoothie diet. She would like to see a cigarette making machine hopper feeder. CV: bp today is 116/82. Denies chest pain, sob, palpitations. She is well controlled on triamterene/hctz 37.5-25 mg. Cholesterol is diet controlled. Heme: Has a hx of joshua and is on iron. She states she does not get her menses frequently anymore. Her LMP 08/2023. She is perimenopause. Mammo: UTD, 02/13 at [facility] Colonoscopy: Never had Pap: ?2019 with her previous pcp Family hx of breast ca, unsure if fam members have had genetic workups. [facility] Medical History (Updated 12/14/23 @ 14:39 by Cookie Hubbadr PA-C) Severe obesity (BMI >= 40) JOSHUA (iron deficiency anemia) HTN (hypertension), benign Hyperlipidemia Perimenopausal Gallstone Surgical History (Updated 12/14/23 @ 13:35 by Lorena Guido CMA) H/O reduction mammoplasty History of laparoscopic cholecystectomy (~11/25/23) H/O bilateral breast reduction surgery (~2011) Family History (Updated 12/14/23 @ 13:38 by Lorena Guido CMA) Mother Cancer Breast cancer Hypercholesteremia Diabetes Cardiovascular disease Thyroid disorder Thyroid cancer Lung cancer Father Cancer Lung cancer HTN (hypertension) Family/Other Cancer Maternal Grandmother Clotting disorder Cardiovascular disease Paternal Grandmother Clotting disorder Social History Housing: House Alcohol intake: never Patient Tobacco Use Status: Never used Tobacco e-Cigarette/Vaping Use: Never Used service: No Current occupational status: employed Current occupation: [employer] Current occupational exposures/hazards: No Cognitive needs: No Hearing needs: No Vision needs: Yes Questionnaire PHQ-9 Over the last 2 weeks, how often have you been bothered by any of the following problems? 1. Little interest or pleasure in doing things: not at all 2. Feeling down, depressed, or hopeless: not at all 3. Trouble falling or staying asleep, or sleeping too much: several days 4. Feeling tired or having little energy: several days 5. Poor appetite or overeating: not at all 6. Feeling bad about yourself - or that you are a failure or have let yourself or your family down: not at all 7. Trouble concentrating on things, such as reading the newspaper or watching television: not at all 8. Moving or speaking so slowly that other people could have noticed. Or the opposite - being so fidgety or restless that you have been moving around a lot more than usual: not at all 9. Thoughts that you would be better off or of hurting yourself in some way: not at all Total score: 2 Depression Screening Interpretation: Negative Depression Screening Done: Yes 22130 - PHQ-9 Billing: Yes Source: Developed by Drs. Diomedes Oscar, Cathi Rodriguez, Gilberto Patricia and colleagues, with an educational lidia from [employer]. Thrive Questionnaire Date Thrive assessed: 12/14/23 I am a: Patient What is your living situation today?: I have a steady place to live Within the past 12 months, did the food you bought not last and you didn't have the money to get more?: Never true Within the past 12 months, did you worry whether your food would run out before you got money to buy more?: Never true Do you have trouble paying for medicines?: No Do you have trouble getting transportation to medical appointments?: No Do you have trouble paying your heating and electricity bill?: No Do you have trouble taking care of your child, family member or friend?: No Do you have trouble with day-to-day activities such as bathing, preparing meals, shopping, managing finances, etc.?: No Are you currently unemployed and looking for a job?: No Are you interested in more education?: No Please select the resources that you would like help with: None Currently or been in a relationship where the following occur: no concerns reported THRIVE Score: 0 AUDIT C Alcohol Use Questionnaire (AUDIT-C) 1. How often do you have a drink containing alcohol?: Monthly or less 2. How many drinks containing alcohol do you have on a typical day when you are drinking?: 1 or 2 3. How often do you have six or more drinks on one occasion?: Never Total Score: 1 Score Reviewed/Action Taken: Yes KELLY-7 AMB Questionnaire KELLY-7 Date KELLY - 7 assessed: 12/14/23 Feeling nervous, anxious, or on edge: 1 = Several days Not being able to stop or control worryin = Several days Worrying too much about different things: 0 = Not at all Trouble relaxin = Several days Being so restless that it is hard to sit still: 0 = Not at all Becoming easily annoyed or irritable: 0 = Not at all Feeling afraid as if something awful might happen: 0 = Not at all Total KELLY-7 score (0-4 normal; 5-9 mild; 10-14 moderate; 15-21 severe): 3 Source: Developed by Drs. Diomedes Oscar, Cathi Rodriguez, Gilberto Patricia and colleagues, with an educational lidia from [employer] KELLY-7 Assessment Billing KELLY-7 Assessment Tool: KELLY-7 Assessment 20540 Physical exam (Primary Care) BMI Assessment/Plan discussion: High (We spent extensive time discussing carbohydrates and sugar intake.) BMI High, discussed plan: lifestyle, weight reduction, dietary and physical activity Tobacco/Smoking Status: Tobacco use Status Tobacco use date assessed 12/14/23 12/14/23 13:24 Patient Tobacco Use Status Never used Tobacco 12/14/23 13:24 e-Cigarette/Vaping Use Never Used 12/14/23 13:24 Depression Screening Interpretation: Negative Currently or been in a relationship where the following occur: no concerns reported Const Orientation/consciousness: patient oriented x3 HENMT Ears: hearing grossly normal bilaterally and TM's normal bilaterally Eyes Direct Ophthalmoscopy: No increased light reflex Neck Thyroid: Thyroid normal Lymphatic: no lymphadenopathy noted Resp Auscultation: clear to auscultation bilaterally Cardio Rate: regular rate Rhythm: regular rhythm Heart sounds: S1 normal heart sound present and S2 normal heart sound present GI Inspection: Yes normal to inspection Palpation (GI): Soft to palpation and Other GI palpation findings present (nontender, no cva tenderness) Auscultation: normoactive bowel sounds Rectal Exam - Female: deferred Skin Other: Intact. Four, small, well-healed incisions noted on the abdomen. Neuro General: patient oriented x3, gait normal and no focal motor deficits Assessment and Plan Assessment & Plan (1) HTN (hypertension), benign: Code(s): I10 - Essential (primary) hypertension Plan: Well-controlled. Continue current regimen (2) Hyperlipidemia: Code(s): E78.5 - Hyperlipidemia, unspecified Qualifiers: Hyperlipidemia type: mixed hyperlipidemia Qualified Code(s): E78.2 - Mixed hyperlipidemia Plan: Discussed low-fat diet. Referral to cigarette making machine hopper feeder placed. Wants to hold off on medication would like to try lifestyle modifications for the next few months. (3) JOSHUA (iron deficiency anemia): Code(s): D50.9 - Iron deficiency anemia, unspecified Qualifiers: Iron deficiency anemia type: chronic blood loss Qualified Code(s): D50.0 - Iron deficiency anemia secondary to blood loss (chronic) Plan: Currently on iron daily. Tolerates it well. Referral to Gynecology and GI. (4) Severe obesity (BMI >= 40): Code(s): E66.01 - Morbid (severe) obesity due to excess calories Plan: Referral to cigarette making machine hopper feeder. (5) Perimenopausal: Code(s): N95.1 - Menopausal and female climacteric states Plan: I have referred her to Gynecology. Plan Labs ordered today. Advised her to find out the genetics for her family history. Advised patient to follow up in a few months with PCP to establish care. Patient understands and agrees with this plan. Orders: Orders Complete Blood Count Auto Diff Today E66.9 - Obesity, unspecified, E78.5 - Hyperlipidemia, unspecified, I10 - Essential (primary) hypertension IRON PROFILE Today E66.9 - Obesity, unspecified, E78.5 - Hyperlipidemia, unspecified, I10 - Essential (primary) hypertension Comprehensive [place]. Panel Fast Today E66.9 - Obesity, unspecified, E78.5 - Hyperlipidemia, unspecified, I10 - Essential (primary) hypertension Vitamin B12 and Folate Today E66.9 - Obesity, unspecified, E78.5 - Hyperlipidemia, unspecified, I10 - Essential (primary) hypertension Lipid Panel Today E66.9 - Obesity, unspecified, E78.5 - Hyperlipidemia, unspecified, I10 - Essential (primary) hypertension Ferritin Today E66.9 - Obesity, unspecified, E78.5 - Hyperlipidemia, unspecified, I10 - Essential (primary) hypertension TSH reflex Free T4 Today E66.9 - Obesity, unspecified, E78.5 - Hyperlipidemia, unspecified, I10 - Essential (primary) hypertension Referrals Gastroenterology Referral D50.9 - Iron deficiency anemia, unspecified, Z12.11 - Encounter for screening for malignant neoplasm of colon 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 N95.1 - Menopausal and female climacteric states 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
[2023-12-14 13:32] VITALS: BP 116/82; PULSE 88; RESP 14; TEMP 36.7; O2SAT 96; BMI 42.0
== END 2023-12-14 14:32 | disposition home or self-care (01) ==
LOC: HO.HMGFM 13:21
PROVIDERS: PCP Family Medicine; Visit Provider Physician Assistant
DX: I10 Essential (primary) hypertension (principal); E66.01 Morbid (severe) obesity due to excess calories; Z68.41 Body mass index [BMI] 40.0-44.9, adult; E78.2 Mixed hyperlipidemia; D50.0 Iron deficiency anemia secondary to blood loss (chronic); N95.1 Menopausal and female climacteric states
CPT/HCPCS: 99205

== ENCOUNTER 2023-12-19 10:07 | Outpatient (REF) | payer OTHER, SELFPAY ==
[2023-12-19 10:27] LABS: MANUAL DIFF FLAG NO
[2023-12-19 11:15] LABS: Basophils Percent Auto 0.8 % (0-2); Eosinophils Absolute Auto 0.3 X10*3/uL (0.0-0.4); Eosinophils Percent Auto 8.3 % (0-4); Hematocrit 32.6 % (37.0-47.0); Hemoglobin 10.6 g/dl (12.0-16.0); Imm Gran Abs Auto 0.02 X10*3/uL (0.00-0.03); Imm Gran Pct Auto 0.5 % (0.0-0.4); Lymphocytes Absolute Auto 1.4 X10*3/uL (1.2-4.9); Lymphocytes Percent Auto 35.2 % (20-40); Mean Corpuscular HGB Conc 32.5 g/dl (31.0-35.0); Mean Corpuscular Hemoglobin 28.3 pg (27.0-33.0); Mean Corpuscular Volume 86.9 fL (80.0-98.0); Monocytes Absolute Auto 0.3 X10*3/uL (0.1-1.2); Monocytes Percent Auto 7.6 % (2-11); Neutrophils Absolute Auto 1.8 x10*3/uL (2.0-8.3); Neutrophils Percent Auto 47.6 % (45-73); Platelet Count 389 X10*3/uL (160-400); Red Blood Count 3.75 X10*6/uL (4.20-5.50); Red Cell Distribution Width 13.5 % (11.0-16.0); White Blood Count 3.8 X10*3/uL (4.8-10.8)
[2023-12-19 12:19] LABS: Alanine Aminotransferase 16 U/L (0-31); Albumin Level 4.3 g/dL (3.5-5.0); Alkaline Phosphatase 48 U/L (39-117); Anion Gap 13 (12-20); Aspartate Amino Transferase 13 U/L (5-31); Bilirubin Total 0.3 mg/dL (0.0-1.0); Blood Urea Nitrogen 12 mg/dL (9-16); Calcium 9.9 mg/dL (8.4-10.2); Carbon Dioxide 30 mmol/L (22-29); Chloride 103 mmol/L (96-108); Cholesterol 194 mg/dL (<200); Estimated Glomerular Filt Rate > 60; Glucose Fasting 88 mg/dL (60-99); HDL Cholesterol 41 mg/dL (>40); Iron 35 mcg/dL (30-160); LDL Cholesterol Calculated 123 mg/dL (<100); Percent Iron Saturation 11 % (15-50); Potassium 3.5 mmol/L (3.3-5.1); Sodium 142 mmol/L (135-145); Total Iron Binding Capacity 319 mcg/dL (228-428); Total Protein 7.6 g/dL (6.5-8.0); Triglycerides 151 mg/dL (<150); Unsaturated Iron Binding 284 ug/dL
[2023-12-19 12:20] LABS: Ferritin 29 ng/mL (10-250); TSH reflex Free T4 0.41 uIU/mL (0.32-4.0)
[2023-12-19 12:40] LABS: Vitamin B12 320 pg/mL (200-900)
== END 2023-12-19 10:08 | disposition home or self-care (01) ==
LOC: HO.LAB 10:07
PROVIDERS: PCP Family Medicine; Visit Provider Physician Assistant
DX: I10 Essential (primary) hypertension (principal); E78.5 Hyperlipidemia, unspecified; E66.9 Obesity, unspecified
CPT/HCPCS: 36415; 80053; 80061; 82607; 82728; 82746; 83540; 84443; 85025

== ENCOUNTER 2024-01-13 07:16 | Outpatient (AMB) | payer OTHER, SELFPAY ==
--- NOTE | 2024-01-13 07:24 | A.OFFVIS_ITS ---
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 Complaining of hot flashes and amenorrhea in addition to few episodes vaginal bleeding over the last 18 months. The patient has anemia is on iron sulfate Last Pap/HPV was? around 5 years within normal Last Mammogram was a year ago, the patient is in the process of scheduling her next screening mammogram No previous screening Colonoscopy, the patient was referred by her PCP to GI for screening colonoscopy no appointment scheduled yet [facility] Medical History Severe obesity (BMI >= 40) GABBY (iron deficiency anemia) HTN (hypertension), benign Hyperlipidemia Perimenopausal Gallstone Surgical History H/O reduction mammoplasty History of laparoscopic cholecystectomy (~11/25/23) H/O bilateral breast reduction surgery (~2011) Family History Mother Cancer Breast cancer Hypercholesteremia Diabetes Cardiovascular disease Thyroid disorder Thyroid cancer Lung cancer Father Cancer Lung cancer HTN (hypertension) Family/Other Cancer Maternal Grandmother Clotting disorder Cardiovascular disease Paternal Grandmother Clotting disorder Social History Housing: House Alcohol intake: never Patient Tobacco Use Status: Never used Tobacco e-Cigarette/Vaping Use: Never Used service: No Current occupational status: employed Current occupation: [employer] Current occupational exposures/hazards: No Cognitive needs: No Hearing needs: No Vision needs: Yes Female Reproductive History Menstrual Menopause type: natural Review of Systems Const All systems reviewed & are unremarkable except as noted in HPI and below Card Reports as per HPI Resp Reports as per HPI GI Reports as per HPI and Reports no additional complaints Reports as per HPI Physical Exam Vital Signs: BMI result Body Mass Index 41.1 Const General: cooperative, healthy appearing and comfortable Chest Chest palpation & inspection: normal inspection of the chest and normal palpation of entire chest wall Breast/axilla inspection: normal inspection of the breasts and normal inspection of the axillae Breast/axilla palpation: normal palpation of the breasts, normal palpation of the axillae and no axillary lymphadenopathy Resp Effort & Inspection: normal respiratory effort Auscultation: clear to auscultation bilaterally Percussion: percussion normal Cardio Palpation: normal PMI Rate: regular rate Rhythm: regular rhythm Heart sounds: no murmurs and no rubs Peripheral pulses: Peripheral pulses 2+ throughout GI Inspection: Yes normal to inspection Palpation (GI): Soft to palpation, nontender, no guarding, not rigid and No hepatosplenomegaly present Percussion: Yes normal to percussion Auscultation: normal bowel sounds Rectal Exam - Female: deferred General: Yes bladder normal to palpation External Female Exam: No lesion Speculum Exam - Vagina: normal appearance of the vagina, normal palpation, normal vaginal discharge and not erythematous Speculum Exam - Cervix: normal appearance of the cervix and normal palpation Bimanual exam- vagina & uterus: normal bimanual exam, normal palpation, uterine size normal, bladder normal to palpation, consistency normal and normal palpation Bimanual Exam- Adnexa, other: normal adnexae, no masses and no tenderness Assessment & Plan Assessment & Plan (1) Well woman exam: Code(s): Z01.419 - Encounter for gynecological examination (general) (routine) without abnormal findings Category: Medical Plan: Co testing done. Counseled the patient about the recommended dietary allowance of 1200 mg of Calcium & 600 IU of vitamin D. The patient is in the process of scheduling her screening Mammogram at [facility] The patient was referred to GI for screening colonoscopy . The patient was instructed to perform monthly self-breast exams and schedule annual exam in a year. All questions answered and the patient verbalized understanding. (2) Postmenopausal bleeding: Code(s): N95.0 - Postmenopausal bleeding Category: Medical Plan: Discussed with the patient the differential diagnosis of post menopausal bleeding with normal pelvic exam including but not limited to, endometrial hyperplasia, cancer, polyps and other causes; co testing done, recommended ultrasound to measure the endometrial stripe; discussed with the patient that if the endometrial thickness is 4 mm or less the negative predictive value of endometrial pathology is 99%, otherwise If endometrial thickness is more than 4 mm will proceed with endometrial sampling versus hysteroscopy D&C polypectomy depending on the ultrasound findings. Instructed the patient to schedule an ultrasound follow-up appointment in 2 weeks. All questions answered, the patient verbalized understanding and agreed with the plan. (3) Anemia: Code(s): D64.9 - Anemia, unspecified Category: Medical Plan: Will refer to hematology. The patient was referred by PCP to GI (4) Hot flashes: Code(s): R23.2 - [place] Category: Medical Plan: FSH/LH ordered. Orders: Orders US pelvic and transvaginal Today N95.0 - Postmenopausal bleeding Follicle Stimulating Hormone Today R23.2 - [place] Lutenizing Hormone Today R23.2 - [place] Referrals Hematology & Oncology Referral D64.9 - Anemia, unspecified Coding Level of Care Code Est Pt Prev Care 40-64y(38624) Diagnoses Well woman exam Z01.419 Postmenopausal bleeding N95.0 Anemia D64.9 Hot flashes R23.2
[2024-01-13 07:25] VITALS: BP 128/80; BMI 41.1
== END 2024-01-13 08:28 | disposition home or self-care (01) ==
PROVIDERS: PCP Family Medicine; Visit Provider Obstetrics & Gynecology
DX: Z01.419 Encounter for gynecological examination (general) (routine) without abnormal findings (principal); N95.0 Postmenopausal bleeding; D64.9 Anemia, unspecified; R23.2 Flushing
CPT/HCPCS: 99396

== ENCOUNTER 2024-01-13 07:16 | Outpatient (REF) | payer OTHER, SELFPAY ==
[2024-01-20 23:23] LABS: Follicle Stimulating Hormone 39.7 mIU/mL
== END 2024-01-13 07:17 | disposition home or self-care (01) ==
LOC: HO.LAB 07:16
PROVIDERS: PCP Family Medicine; Visit Provider Obstetrics & Gynecology
DX: R23.2 Flushing (principal); E66.01 Morbid (severe) obesity due to excess calories; N95.0 Postmenopausal bleeding
CPT/HCPCS: 36415; 83001; 83002; 97802

== ENCOUNTER 2024-01-13 08:00 | Outpatient (REF) | payer OTHER, SELFPAY ==
[2024-01-20 21:59] LABS: HPV mRNA E6/E7 rflx Not Detected (Not Detected)
== END 2024-01-13 08:01 | disposition home or self-care (01) ==
LOC: HO.LNP 08:00
PROVIDERS: Visit Provider Obstetrics & Gynecology
DX: N95.0 Postmenopausal bleeding (principal)
CPT/HCPCS: 87624; 88142

== ENCOUNTER 2024-01-13 08:42 | Outpatient (AMB) | payer OTHER, SELFPAY ==
[2024-01-13 09:39] VITALS: BMI 41.1
--- NOTE | 2024-01-13 09:39 | A.OFFVIS_ITS ---
VS Expanded 01/13/24 09:39 01/13/24 09:47 Height 5 ft 3 in 5 ft 3 in Weight 231 lb 14.821 oz 232 lb BMI 41.1 41.1 Intake Visit Reasons: Obesity, Hyperlipidemia, Hypertension/LVM Allergies adhesive tape Allergy (Intermediate, Verified 01/13/24 07:28) skin tear Nutrition Presentation Details: Pt presents for MNT for obesity, hyperlipidemia, HTN. Pt was referred by [facility] PCP Typical day B: scrambled egg sausage and toast, coffee snacks: pretzels, fruits, samm chip, water , herbal tea L: leftover or salad with chicken , water Dinner:chicken, baked potato, water or samm chip food frequency fish: not including fruits: once/day , fruit juices 1/d vegetables: 3 x/wk dairy: no milk due to leading to phlegm BS Monitoring Most Recent Diabetes Results: Cholesterol 194 mg/dL (<200) 12/19/23 HDL Cholesterol 41 mg/dL (>40) 12/19/23 Triglycerides 151 mg/dL (<150) H 12/19/23 Creatinine 0.82 mg/dL (0.5-1.4) 12/19/23 Blood Urea Nitrogen 12 mg/dL (9-16) 12/19/23 Sodium 142 mmol/L (135-145) 12/19/23 Potassium 3.5 mmol/L (3.3-5.1) 12/19/23 Chloride 103 mmol/L (96-108) 12/19/23 Carbon Dioxide 30 mmol/L (22-29) H 12/19/23 Calcium 9.9 mg/dL (8.4-10.2) 12/19/23 AST 13 U/L (5-31) 12/19/23 ALT 16 U/L (0-31) 12/19/23 Total Protein 7.6 g/dL (6.5-8.0) 12/19/23 Albumin 4.3 g/dL (3.5-5.0) 12/19/23 QYI-Abvveqb-Rs.Jeor Equation Height: 5 ft 3 in Weight: 232 lb Resting Metabolic Rate: 1624.73 Calculated Activity Level: Sedentary Calories Needed to Maintain Weight: 1949.68 Diagnosis Nutrition problem #1: food nutri know defi As related to (etiology) #1: diagnosis As evidenced by (sign/symptom) #1: knowledge deficit of diet [facility] Medical History Severe obesity (BMI >= 40) GABBY (iron deficiency anemia) HTN (hypertension), benign Hyperlipidemia Perimenopausal Gallstone Surgical History H/O reduction mammoplasty History of laparoscopic cholecystectomy (~11/25/23) H/O bilateral breast reduction surgery (~2011) Family History Mother Cancer Breast cancer Hypercholesteremia Diabetes Cardiovascular disease Thyroid disorder Thyroid cancer Lung cancer Father Cancer Lung cancer HTN (hypertension) Family/Other Cancer Maternal Grandmother Clotting disorder Cardiovascular disease Paternal Grandmother Clotting disorder Social History Housing: House Alcohol intake: never Patient Tobacco Use Status: Never used Tobacco e-Cigarette/Vaping Use: Never Used service: No Current occupational status: employed Current occupation: [employer] Current occupational exposures/hazards: No Cognitive needs: No Hearing needs: No Vision needs: Yes Assessment & Plan Assessment & Plan (1) Severe obesity (BMI >= 40): Code(s): E66.01 - Morbid (severe) obesity due to excess calories Category: Medical Plan: Wt: 116 Kg ( 12/2023 ) Est kcal needs as per MSJ: 2000 (40% carb, 30% protein/fat) Est fluid needs as per 25-30 ml/d: 3500 Est prot per day as per 1 g/kg bw: 116 Recommend fiber intake : 8-10 g per day and gradually increase to 25-28 g per day for women and 35-38 g for men or as tolerated Recommend sodium intake per day : less than 2000 mg Educated patient on: ( R = reviewed V = verbalizes understanding N/R = needs review N/A = not applicable * Food sources of carbohydrate, adequate serving sizes and its role in various health conditions: R * Differences between complex carbohydrates a simple carbohydrates, role of fiber in diet: R * Lean protein sources of foods: R * Differences between types of fats and role in diet (mono on saturated fat fatty acids, saturated fatty acids, trans fats): R V N/R * Food sources of sodium in salt and healthy modifications for heart health in kidney health: R V R/V * Vitamins and minerals: R V N/R * Healthy plate method concept: R V N/R * Physical activity: Benefits a precaution: R V N/R * \ Patient Instructions: Practice mindful eating follow healthy plate method at dinner reduce total carb to 60 g or less at meal time Coding Level of Care Code Nutr Indiv Intake (14332) Diagnoses Severe obesity (BMI >= 40) E66.01 Time Spent (min) 30
[2024-01-21 21:54] VITALS: BMI 41.1
== END 2024-01-13 10:21 | disposition home or self-care (01) ==
PROVIDERS: PCP Physician Assistant; Visit Provider Dietitian, Registered
DX: E66.01 Morbid (severe) obesity due to excess calories (principal)

== ENCOUNTER 2024-01-20 15:41 | Outpatient (REF) | payer OTHER, SELFPAY ==
--- NOTE | ~2024-01-20 | US_ITS ---
EXAMINATION: US PELVIS CLINICAL INFORMATION: Postmenopausal bleeding, last menstrual period August 2023. COMPARISON: Limited ultrasound abdomen 11/13/2023. TECHNIQUE: Ultrasound of the pelvis is performed using both transabdominal and transvaginal transducers along with Doppler. Transvaginal imaging is performed due to inadequate visualization transabdominally. FINDINGS: The uterus is anteverted and measures 11.3 x 4.7 x 5.6 cm. Uterus is heterogeneous in echotexture. Endometrial thickness is 11 mm. Visualization of uterus, endometrium and bilateral ovaries limited due to bowel gas. Patient declined transvaginal ultrasound images. Transvaginal ultrasound imaging is recommended for better visualization. Right ovary measures 2.8 x 1.5 x 1.8 cm, volume 4.0 mL. Left ovary measures 1.8 x 1.1 x 1.6 cm, volume 1.7 mL. There is no significant free fluid. US/US pelvic complete IMPRESSION: Endometrial thickness is 11 mm. Visualization of uterus, endometrium and bilateral ovaries limited due to bowel gas. Patient declined transvaginal ultrasound images. Transvaginal ultrasound imaging is recommended for better visualization.
== END 2024-01-20 15:42 | disposition home or self-care (01) ==
LOC: HO.US 15:41
PROVIDERS: PCP Family Medicine; Visit Provider Obstetrics & Gynecology
DX: N95.0 Postmenopausal bleeding (principal)
CPT/HCPCS: 76856

== ENCOUNTER 2024-01-28 11:52 | Outpatient (AMB) | payer OTHER, SELFPAY ==
--- NOTE | 2024-01-28 11:53 | MHC.OFFVIS ---
Intake Visit Reasons: U/S results Allergies adhesive tape Allergy (Intermediate, Verified 01/13/24 07:28) skin tear HPI Comments Details: The patient is scheduled tele health visit for follow-up ultrasound regarding postmenopausal bleeding. FSH/LH were 39.7/41 Pelvic ultrasound, the official report is still pending, unofficial reading showed endometrial thickness is 11 mm PFSH Medical History Severe obesity (BMI >= 40) GABBY (iron deficiency anemia) HTN (hypertension), benign Hyperlipidemia Perimenopausal Gallstone Surgical History H/O reduction mammoplasty History of laparoscopic cholecystectomy (~11/25/23) H/O bilateral breast reduction surgery (~2011) Family History Mother Cancer Breast cancer Hypercholesteremia Diabetes Cardiovascular disease Thyroid disorder Thyroid cancer Lung cancer Father Cancer Lung cancer HTN (hypertension) Family/Other Cancer Maternal Grandmother Clotting disorder Cardiovascular disease Paternal Grandmother Clotting disorder Social History Housing: House Alcohol intake: never Patient Tobacco Use Status: Never used Tobacco e-Cigarette/Vaping Use: Never Used service: No Current occupational status: employed Current occupation: [employer] Current occupational exposures/hazards: No Cognitive needs: No Hearing needs: No Vision needs: Yes Review of Systems Const All systems reviewed & are unremarkable except as noted in HPI and below Reports as per HPI and Reports no additional complaints GI Reports no additional complaints Reports no additional complaints Telehealth Telehealth Telehealth Platform: Telephone Location of provider rendering services: practice address Location of patient: address on file Patient Identification confirmed using: Name, : Yes Telehealth method: video Patient verbally consented to treatment: Yes Patient verbally consented to billing insurance company: Yes Patient informed of any privacy concerns related to visit: Yes Assessment & Plan Assessment & Plan (1) Postmenopausal bleeding: Code(s): N95.0 - Postmenopausal bleeding Category: Medical Plan: Discussed with the patient the pelvic ultrasound findings, the endometrial stripe thickenss measured by ultrasound was more than 4mm. The negative predictive value, positive predictive value, Sensitivity, specificity of using ultrasound measurement of endometrial stripe to detecting endometrial pathology including hyperplasia , polyp or cancer were discussed with the patient. Recommended to the patient that the next step is an endometrial sampling via hysteroscopy D&C possible polypectomy versus endometrial biopsy to r/o endometrial pathology including hyperplasia or cancer. All the pros and cons risks and benefits of each approach were discussed with the patient, endometrial biopsy being less invasive, office procedure with less sensitivity and inability diagnose a polyp and removal versus hysteroscopy done under anesthesia more invasive more sensitive to endometrial cancer and possibility of diagnosing and endometrial polyp with the possibility of polypectomy. All questions were answered pt verbalized understanding and decided to proceed with endometrial biopsy. Instructions given to patient to schedule an appointment for an endometrial biopsy. I spent a total of 20 minutes reviewing the chart, talking to the patient via video and documenting in the medical record. Coding Level of Care Code Tele Est Pt Level 1 (21925) Diagnoses Postmenopausal bleeding N95.0
== END 2024-01-28 15:22 | disposition home or self-care (01) ==
LOC: HO.HWS 11:52
PROVIDERS: PCP Family Medicine; Visit Provider Obstetrics & Gynecology
DX: N95.0 Postmenopausal bleeding (principal)
CPT/HCPCS: 99211

== ENCOUNTER → 2024-01-28 11:52 | Outpatient (BNVA) | payer OTHER, SELFPAY | PROVIDERS: PCP Family Medicine; Visit Provider Obstetrics & Gynecology ==

== ENCOUNTER 2024-02-24 09:34 | Outpatient (AMB) | payer OTHER, SELFPAY ==
--- NOTE | 2024-02-24 09:45 | MHC.OFFVIS ---
Vital Signs 02/24/24 09:47 Height 5 ft 3 in Weight 235 lb 14.314 oz BMI 41.8 BP 149/65 H Blood Pressure Location Lt brachial Position Sitting Pulse 87 Intake Visit Reasons: Anemia/ Colonoscopy Screening Intake Note: Anna presents in the office as a new patient for Anemia and Colonoscopy Screening. CC: She is nervous about the procedure. She is aware she has hemorrhoids and has history of blood when she has a BM. She is anemic but they are unsure as to why. She states every time she has a BM now she has blood and she is feeling the external hemorrhoids and last week it was pretty severe. 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 She is referred by Cookie Hubbard of [facility] primary care. PMX Morbid obesity Hypertension High cholesterol Anemia * SURGICAL HISTORY History of reduction mammoplasty Cholecystectomy * ALLERGIES: NKDA adhesive tapes * [email or web address] LABS: Laboratory Tests 12/19/23 10:25 WBC 3.8 L RBC 3.75 L Hgb 10.6 L Hct 32.6 L MCV 86.9 MCH 28.3 Plt Count 389 Estimated GFR > 60 Total Bilirubin 0.3 AST 13 ALT 16 Alkaline Phosphatase 48 TSH 0.41 TODAY'S VISIT Onset last March with a ? UTI with abd pain on the right side. It came and went and became very severe in August. Her PCP did not have the best communications and interactions with her. The pain was like a hot knife was stabbing me. i was fairly regionalized to the RUQ with only some movement from 3 fingers under rib to right flank. She had her GB out. She will have minor pain when she has a really bad day. She has been having constant diarrhea and near fecal incontinence. The best the stooling is pudding thickness but often watery. She has severe GERD but this is for qu9te a while. she takes OTC prilosec with good relief. She has ext roids. she has seen blood in the stooling. A week ago she had to wear a napkin she has so much bleeding. She has had severer N/V with past general surgeries no other problems. She denies any cardiac or respiratory problems. No ID problems. There is a strong FHX of breast cancer, no know stomach or CRC or polyps. REPLACED BY [facility] Medical History Severe obesity (BMI >= 40) GABBY (iron deficiency anemia) HTN (hypertension), benign Hyperlipidemia Perimenopausal Gallstone Surgical History H/O reduction mammoplasty History of laparoscopic cholecystectomy (~11/25/23) Family History Mother Cancer Breast cancer Hypercholesteremia Diabetes Cardiovascular disease Thyroid disorder Thyroid cancer Lung cancer Father Cancer Lung cancer HTN (hypertension) Family/Other Cancer Maternal Grandmother Clotting disorder Cardiovascular disease Paternal Grandmother Clotting disorder Social History Housing: House Alcohol intake: never Patient Tobacco Use Status: Never used Tobacco e-Cigarette/Vaping Use: Never Used service: No Current occupational status: employed Current occupation: [employer] Current occupational exposures/hazards: No Cognitive needs: No Hearing needs: No Vision needs: Yes Review of Systems Const Denies fatigue, Denies fever(s), Denies night sweats, Denies poor appetite, Reports weight gain and Denies weight loss Eyes Details: glasses Reports requires corrective lenses ENT Reports Normal hearing present, Denies dental pain, Denies dysphagia, Denies hearing loss, Denies mouth pain, Denies odynophagia, Denies throat swelling, Denies tongue swelling and Reports other (Dentition adequate) Card Reports no additional complaints Resp Reports no additional complaints GI Details: Reports abdominal pain, Denies melena, Denies bloating, Reports hematochezia, Denies constipation, Denies GI cramping, Denies dysphagia, Denies excessive flatus, Denies early satiety, Reports heartburn, Reports diarrhea, Denies nausea, Denies odynophagia, Denies vomiting and Denies hematemesis Skin/Breast Denies pruritus, Denies lesions, Denies rash and Denies jaundice Neuro Reports Normal hearing present and Denies Abnormal speech present Endo Denies fatigue Aller/Immun Denies throat swelling and Denies tongue swelling Physical Exam Vital Signs: Last Vital Signs Pulse 87 02/24/24 09:47 BP 149/65 H 02/24/24 09:47 BMI result Body Mass Index 41.8 Const General: cooperative, no acute distress, well developed and well groomed Nutritional Appearance: well nourished and obese Orientation/consciousness: oriented to person, oriented to place and oriented to time Limitations: No language barrier HEENT Head: Yes normocephalic and Yes atraumatic Eyes General: appearance normal, both eyes and all related structures Pupils: Equal, round and reactive pupils present Neck Neck: Yes normal visual inspection and Yes no lymphadenopathy Thyroid: Thyroid normal Resp Effort & Inspection: normal respiratory effort and able to speak in complete sentences Auscultation: clear to auscultation bilaterally Cardio Rate: regular rate Rhythm: regular rhythm Heart sounds: Normal, physiologic split S2 sound present Peripheral pulses: radial pulses present and posterior tibial pulses present GI Inspection: No distended, Yes Abdominal panniculus present and Yes obesity Palpation (GI): Soft to palpation, nontender, no guarding, not rigid and No hepatosplenomegaly present Percussion: Yes normal to percussion Auscultation: normal bowel sounds Rectal Exam - Female: deferred Abdomen image: 1. Well-healed surgical scars 2. Skin General skin exam: no rashes or lesions noted, turgor normal, skin not dry, no jaundice, No spider nevi and no striae Rashes: no rashes Nails: normal Neuro General: oriented to person, oriented to place and oriented to time Cranial nerves: Yes Equal, round and reactive pupils present and Yes Normal hearing present Speech: No Abnormal speech present Extrem General: Yes normal to inspection, No clubbing, No cyanosis and No edema Psych Appearance: grossly normal and well kempt Mental Status: mental status grossly normal Speech and movement: Normal speech and movement present Affect: normal affect Attitude: cooperative Thought process: Normal thought process present and not confabulating Thought content: Normal thought content present Insight: Fair insight present (Psych) Judgement: Fair judgement present (Psych) Assessment & Plan Assessment & Plan (1) Pre-op examination: Code(s): Z01.818 - Encounter for other preprocedural examination Category: Medical (2) Anemia: Code(s): D64.9 - Anemia, unspecified Category: Medical (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 UTI with abd pain on the right side. It came and went and became very severe in August. Her PCP did not have the best communications and interactions with her. The pain was like a hot knife was stabbing me. i was fairly regionalized to the RUQ with only some movement from 3 fingers under rib to right flank. She had her GB out. She will have minor pain when she has a really bad day. She has been having constant diarrhea and near fecal incontinence. The best the stooling is pudding thickness but often watery. She has severe GERD but this is for qu9te a while. she takes OTC prilosec with good relief. She has ext roids. she has seen blood in the stooling. A week ago she had to wear a napkin she has so much bleeding. She has had severer N/V with past general surgeries no other problems. She denies any cardiac or respiratory problems. No ID problems. There is a strong FHX of breast cancer, no know stomach or CRC or polyps. Orders: Orders EGD/[place] Combo - GI Use Only Today D64.9 - Anemia, unspecified, K91.5 - Postcholecystectomy syndrome, Z01.818 - Encounter for other preprocedural examination Referrals Bariatric Surgery Referral E66.01 - Morbid (severe) obesity due to excess calories Medications: New cholestyramine (with sugar) 4 gram administer w/meal; avoid other meds within 1hr before or 4-6hr after dose 4 grams PO BID 60 ea 6RF K91.5 - Postcholecystectomy syndrome sodium,potassium,mag sulfates 17.5-3.13-1.6 gram (Suprep Bowel Prep Kit) 480 mL orally; FOR COLONOSCOPY PREP 354 mL 0RF hydrocortisone 2.5% (Proctosol HC) BE SURE TO INCLUDE RECTAL APPICATOR!! 1 appl [place] BID 30 grams 6RF hemorrhoids K64.9 - Unspecified hemorrhoids Coding Level of Care Code New Pt Level 3 (20531) Diagnoses Pre-op examination Z01.818 Anemia D64.9 Post-cholecystectomy syndrome K91.5 Severe obesity (BMI >= 40) E66.01
[2024-02-24 09:47] VITALS: BP 149/65; PULSE 87; BMI 41.8
== END 2024-02-24 11:35 | disposition home or self-care (01) ==
PROVIDERS: PCP Family Medicine; Visit Provider Nurse Practitioner
DX: Z01.818 Encounter for other preprocedural examination (principal); D64.9 Anemia, unspecified; K91.5 Postcholecystectomy syndrome; E66.01 Morbid (severe) obesity due to excess calories
CPT/HCPCS: 99203

== ENCOUNTER → 2024-02-24 09:34 | Outpatient (BNVA) | payer OTHER, SELFPAY | PROVIDERS: PCP Family Medicine; Visit Provider Nurse Practitioner ==

== ENCOUNTER 2024-03-03 08:31 | Outpatient (AMB) | payer OTHER, SELFPAY ==
[2024-03-03 08:53] VITALS: BMI 41.8
--- NOTE | 2024-03-03 08:53 | A.OFFVIS_ITS ---
Vital Signs 03/03/24 08:53 Height 5 ft 3 in Weight 235 lb 14.314 oz BMI 41.8 Intake Visit Reasons: EMB Crab Butcher Required: No Information Interpreted: non-clinical & clinical [employer]ing: [employer] Present (Emily CHESTER) Accompanied by: Self / Same As Patient Allergies adhesive tape Allergy (Intermediate, Verified 03/03/24 08:54) skin tear Post menopausal: Yes HPI Comments Details: Presenting for EMB [facility] Medical History Severe obesity (BMI >= 40) GABBY (iron deficiency anemia) HTN (hypertension), benign Hyperlipidemia Perimenopausal Gallstone Surgical History H/O reduction mammoplasty History of laparoscopic cholecystectomy (~11/25/23) Family History Mother Cancer Breast cancer Hypercholesteremia Diabetes Cardiovascular disease Thyroid disorder Thyroid cancer Lung cancer Father Cancer Lung cancer HTN (hypertension) Family/Other Cancer Maternal Grandmother Clotting disorder Cardiovascular disease Paternal Grandmother Clotting disorder Social History Housing: House Alcohol intake: never Patient Tobacco Use Status: Never used Tobacco e-Cigarette/Vaping Use: Never Used service: No Current occupational status: employed Current occupation: [employer] Current occupational exposures/hazards: No Cognitive needs: No Hearing needs: No Vision needs: Yes Review of Systems Const All systems reviewed & are unremarkable except as noted in HPI and below Reports as per HPI and Reports no additional complaints GI Reports no additional complaints Reports no additional complaints Physical Exam Vital Signs: BMI result Body Mass Index 41.8 Office Procedures Endometrial Biopsy Details: The patient was counseled regarding the indication and benefits of endometrial sampling to rule out endometrial pathology including not limited to endometrial hyperplasia or endometrial cancer and others; The alternatives (Either do nothing vs. hysteroscopy D&C) & the risks were discussed with the patient including but not limited: pain, uterine perforation, bleeding, infection, possible injury to bladder, bowel, ureter, possible need for blood transfusion with all its possible risks. The patient verbalized understanding all questions answered and signed consent. The patient was placed into the dorsal lithotomy position; a speculum was inserted in the vagina. Using aseptic technique for the procedure, the cervix was cleansed with Betadine. The anterior lip of the cervix was grasped with a single tooth tenaculum. The uterus was sounded to 7 cm with a 4 mm Pipelle was used. Tissues samples were obtained and placed in formalin, in a patient labeled container and sent to the pathology department. At the end of the procedure, there was minimal bleeding noted The patient tolerated the procedure well and was discharged in good condition with the following instructions: Nothing in the vagina until the bleeding stops. No sex until the bleeding stops, to call if any of the following occurs: fever (>100.4), flu-like symptoms, abdominal pain, heavy bleeding, four smelling vaginal discharge. The patient was instructed to schedule a Follow up appointment in 2 weeks to discuss pathology results of the biopsy and treatment options. This note was generated with a voice recognition program. Some errors may have been overlooked during the review of this note. Sometimes these errors may affect the content or meaning of a given sentence. [id number] Biopsy Assessment & Plan Assessment & Plan (1) Postmenopausal bleeding: Code(s): N95.0 - Postmenopausal bleeding Category: Medical Plan: EMB done, see procedure note Orders: Orders AMB Endometrial Biopsy Today N95.0 - Postmenopausal bleeding Coding Level of Care Code Procedure Only Diagnoses Postmenopausal bleeding N95.0 CPT Codes Endometrial Biopsy - CPT: 47983-[id number] Biopsy ([id number])
== END 2024-03-03 10:52 | disposition home or self-care (01) ==
LOC: HO.HWS 08:32
PROVIDERS: PCP Family Medicine; Visit Provider Obstetrics & Gynecology
DX: N95.0 Postmenopausal bleeding (principal)
CPT/HCPCS: 58100

== ENCOUNTER 2024-03-03 08:31 | Outpatient (REF) | payer OTHER, SELFPAY | END 2024-03-03 08:32 | disposition home or self-care (01) | LOC: HO.LNP 08:31 | PROVIDERS: PCP Family Medicine; Visit Provider Obstetrics & Gynecology | DX: N95.0 Postmenopausal bleeding (principal) | CPT/HCPCS: 58100; 88305 ==

== ENCOUNTER 2024-03-03 14:52 | Outpatient (AMB) | payer OTHER, SELFPAY ==
--- NOTE | 2024-03-03 15:02 | A.OFFPC_ITS ---
Vital Signs 03/03/24 15:27 Height 4 ft 3 in Weight 184 lb BMI 49.7 BP 118/88 Blood Pressure Location Lt brachial Position Sitting Pulse 94 Pulse Source Pulse Oximeter Pulse Oximetry (%) 98 Oxygen Delivery Method Room Air Intake Visit Reasons: bp f/u Intake Note: Follow up htn Allergies adhesive tape Allergy (Intermediate, Verified 03/03/24 15:23) skin tear bandaid Allergy (Unknown, Uncoded 03/03/24 15:24) skin redness Tobacco use date assessed: 12/14/23 Dental Screening Dental Screen Date: 12/14/23 HPI bp f/u HPI Details Pt is a 53 y/o female who presents today to follow up. CV: bp today is 118/88. Denies chest pain, sob, palpitations. She is well controlled on triamterene/hctz 37.5-25 mg. Cholesterol is diet controlled. Heme: Has a hx of joshua and is on iron. She states she does not get her menses frequently anymore. Her LMP 08/2023. She is perimenopause. GI: Saw GI 02/23 and is getting double endoscopy for the anemia. 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 Mammo: UTD, 02/20/24 Colonoscopy: Never had- Getting double endoscopy this month. Pap: ?2019 with her previous pcp Family hx of breast ca, unsure if fam members have had genetic workups. [facility] Medical History Severe obesity (BMI >= 40) JOSHUA (iron deficiency anemia) HTN (hypertension), benign Hyperlipidemia Perimenopausal Gallstone Surgical History H/O reduction mammoplasty History of laparoscopic cholecystectomy (~11/25/23) Family History Mother Cancer Breast cancer Hypercholesteremia Diabetes Cardiovascular disease Thyroid disorder Thyroid cancer Lung cancer Father Cancer Lung cancer HTN (hypertension) Family/Other Cancer Maternal Grandmother Clotting disorder Cardiovascular disease Paternal Grandmother Clotting disorder Social History Housing: House Alcohol intake: never Patient Tobacco Use Status: Never used Tobacco e-Cigarette/Vaping Use: Never Used service: No Current occupational status: employed Current occupation: [employer] Current occupational exposures/hazards: No Cognitive needs: No Hearing needs: No Vision needs: Yes Questionnaire Thrive Questionnaire Date Thrive assessed: 12/14/23 KELLY-7 AMB Questionnaire KELLY-7 Date KELLY - 7 assessed: 12/14/23 Source: Developed by Drs. Diomedes Oscar, Cathi Rodriguez, Gilberto Patricia and colleagues, with an educational lidia from [employer]. Physical exam (Primary Care) Vital Signs: Last Vital Signs Pulse 94 03/03/24 15:27 BP 118/88 03/03/24 15:27 Pulse Ox 98 03/03/24 15:27 Oxygen Delivery Method Room Air 03/03/24 15:27 BMI result Body Mass Index 49.7 Tobacco/Smoking Status: Tobacco use Status Tobacco use date assessed 12/14/23 03/03/24 15:03 Patient Tobacco Use Status Never used Tobacco 03/03/24 15:03 e-Cigarette/Vaping Use Never Used 03/03/24 15:03 Thrive Assessment: Date of Thrive Assessment Date Thrive assessed 12/14/23 03/03/24 15:03 Const Orientation/consciousness: patient oriented x3 HENMT Ears: hearing grossly normal bilaterally Neck Thyroid: Thyroid normal Lymphatic: no lymphadenopathy noted Resp Auscultation: clear to auscultation bilaterally Cardio Rate: regular rate Rhythm: regular rhythm Heart sounds: S1 normal heart sound present and S2 normal heart sound present GI Inspection: Yes normal to inspection Palpation (GI): Soft to palpation and Other GI palpation findings present (n ontender, no cva tenderness) Auscultation: normoactive bowel sounds Rectal Exam - Female: deferred Skin General skin exam: no rashes or lesions noted Neuro General: patient oriented x3, gait normal and no focal motor deficits Results Reviewed Results Reviewed: Laboratory Tests 11/13/23 12/19/23 19:32 10:25 WBC 3.8 L RBC 3.57 L 3.75 L Hgb 10.5 L 10.6 L Hct 31.0 L 32.6 L Plt Count 389 Sodium 139 Potassium 3.5 Creatinine 0.86 0.82 Estimated GFR > 60 > 60 Random Glucose 109 Fasting Glucose 88 Calcium 9.7 Total Bilirubin 0.2 AST 15 13 ALT 18 16 Alkaline Phosphatase 45 48 Triglycerides 151 H Cholesterol 194 LDL Cholesterol, Calc 123 H HDL Cholesterol 41 Assessment and Plan Assessment & Plan (1) HTN (hypertension), benign: Code(s): I10 - Essential (primary) hypertension Plan: bp wnl continue current plan (2) Postmenopausal bleeding: Code(s): N95.0 - Postmenopausal bleeding Plan: waiting for bx results (3) JOSHUA (iron deficiency anemia): Code(s): D50.9 - Iron deficiency anemia, unspecified Qualifiers: Iron deficiency anemia type: chronic blood loss Qualified Code(s): D50.0 - Iron deficiency anemia secondary to blood loss (chronic) Plan: double endoscopy scheduled. Coding Level of Care Code Est Pt Level 4 (91456) Complex EM visit Add On G2211 Diagnoses HTN (hypertension), benign I10 Postmenopausal bleeding N95.0 Iron deficiency anemia due to chronic blood loss D50.0 Iron deficiency anemia type: chronic blood loss
[2024-03-03 15:27] VITALS: BP 118/88; PULSE 94; O2SAT 98; BMI 49.7
== END 2024-03-03 15:52 | disposition home or self-care (01) ==
PROVIDERS: PCP Family Medicine; Visit Provider Physician Assistant
DX: I10 Essential (primary) hypertension (principal); N95.0 Postmenopausal bleeding; D50.0 Iron deficiency anemia secondary to blood loss (chronic)
CPT/HCPCS: 99214; G2211

== ENCOUNTER 2024-03-04 14:17 | Outpatient (REF) | payer OTHER, SELFPAY ==
[2024-03-04 18:17] LABS: Appearance Urine Clear; Color Urine Yellow; Glucose Urine UA Negative (Negative); Leukocyte Esterase Urine Negative (Negative); Nitrite Urine Negative (Negative); PH 5.5 (5.0-9.0); Specific Gravity - Urine <= 1.005 (1.005-1.025); UMIC TRIGGER UACC YES; Urine Blood Trace (Negative); Urine Ketones Negative (Negative); Urine Protein Negative (Neg-Trace)
[2024-03-04 18:21] LABS: Bacteria Urine None Seen (None Seen); Hyaline Casts Urine 0-2 /LPF (0-2); RBC Urine 0-2 /HPF (0-2); Squamous Epithelial Cell Urine 0-2 /HPF (0-2); WBC Urine 0-5 /HPF (0-5)
== END 2024-03-04 14:18 | disposition home or self-care (01) ==
LOC: HO.LAB 14:17
PROVIDERS: Visit Provider Physician Assistant
DX: Z01.818 Encounter for other preprocedural examination (principal)
CPT/HCPCS: 81001

== ENCOUNTER → 2024-03-07 07:46 | Outpatient (BNVA) | payer OTHER, SELFPAY | PROVIDERS: PCP Family Medicine; Visit Provider Physician Assistant Surgical ==

== ENCOUNTER 2024-03-10 07:24 | Outpatient (AMB) | payer OTHER, SELFPAY ==
--- NOTE | 2024-03-10 07:28 | MHC.OFFVIS ---
Vital Signs 03/10/24 07:29 Height 5 ft 3 in Weight 229 lb 4.492 oz BMI 40.6 BP 122/76 Intake Visit Reasons: EMB results Allergies adhesive tape Allergy (Intermediate, Verified 03/07/24 08:12) skin tear bandaid Allergy (Unknown, Uncoded 03/03/24 15:24) skin redness HPI Comments Details: The patient is presenting after endometrial biopsy. The patient has no complaints, no vaginal bleeding, no feverishness chills or abdominal pain. The endometrial biopsy pathology report showed the following: Superficial strips of benign inactive endometrium, and scant benign endocervical glandular and squamous epithelium; no atypia or carcinoma PFSH Medical History Severe obesity (BMI >= 40) GABBY (iron deficiency anemia) HTN (hypertension), benign Hyperlipidemia Perimenopausal Gallstone Surgical History H/O reduction mammoplasty History of laparoscopic cholecystectomy (~11/25/23) Family History Mother Cancer Breast cancer Hypercholesteremia Diabetes Cardiovascular disease Thyroid disorder Thyroid cancer Lung cancer Father Cancer Lung cancer HTN (hypertension) Family/Other Cancer Maternal Grandmother Clotting disorder Cardiovascular disease Paternal Grandmother Clotting disorder Social History Housing: House Alcohol intake: current Alcohol intake frequency: holidays/special occasions only Patient Tobacco Use Status: Never used Tobacco e-Cigarette/Vaping Use: Never Used service: No Current occupational status: employed Current occupation: [employer] Current occupational exposures/hazards: No Cognitive needs: No Hearing needs: No Vision needs: Yes Review of Systems Const All systems reviewed & are unremarkable except as noted in HPI and below Reports as per HPI and Reports no additional complaints GI Reports no additional complaints Reports no additional complaints Physical Exam Vital Signs: Last Vital Signs BP 122/76 03/10/24 07:29 BMI result Body Mass Index 40.6 Assessment & Plan Assessment & Plan (1) Postmenopausal bleeding: Code(s): N95.0 - Postmenopausal bleeding Category: Medical Plan: Discussed with the patient the results of the endometrial biopsy showing inactive endometrium. Discussed with the patient the sensitivity, specificity, positive and negative predictive value, of endometrial biopsy in detecting endometrial pathology including but not limited to endometrial hyperplasia, cancer and other pathology; instructed the patient to call in case vaginal bleeding bleeding recurs, the next step will be to proceed with a diagnostic hysteroscopy/D&C for further endometrial sampling evaluation to rule out endometrial pathology. All questions answered and the patient verbalized understanding and agreed with the plan. Coding Level of Care Code Est Pt Level 3 (76156) Diagnoses Postmenopausal bleeding N95.0
[2024-03-10 07:29] VITALS: BP 122/76; BMI 40.6
== END 2024-03-10 08:12 | disposition home or self-care (01) ==
PROVIDERS: PCP Family Medicine; Visit Provider Obstetrics & Gynecology
DX: N95.0 Postmenopausal bleeding (principal)
CPT/HCPCS: 99213

== ENCOUNTER → 2024-03-10 07:24 | Outpatient (BNVA) | payer OTHER, SELFPAY | PROVIDERS: PCP Family Medicine; Visit Provider Obstetrics & Gynecology ==

== ENCOUNTER 2024-04-06 09:07 | Outpatient (AMB) | payer OTHER, SELFPAY ==
--- NOTE | 2024-04-06 09:09 | MHC.OFFVIS ---
Vital Signs 04/06/24 09:42 Height 5 ft 3 in Weight 229 lb 4.492 oz BMI 40.6 Intake Visit Reasons: follow up 4 weeks medication Intake Note: Raheel is seen in office for 4 weeks follow up visit, following on medications. Pt c/o: using the cortisone cream with minimal relief, still feels the hemorrhoids in the area, bloody, was also Rx a powder to mix with drink instruction said twiec a day howmikayla is doing once, due to constipation. Unsure if meds are working properly. Bunch Trimmer Mold Required: No Accompanied by: Self / Same As Patient Allergies adhesive tape Allergy (Intermediate, Verified 03/07/24 08:12) skin tear bandaid Allergy (Unknown, Uncoded 03/03/24 15:24) skin redness Medication List - Last Reconciled 04/06/24 by DANIELA Casarez [calcium PO] cholestyramine (with sugar) 4 gram 1 ea PO BID diphenhydramine-acetaminophen 25-500 mg (Tylenol PM Extra Strength) 1 tab PO BEDTIME PRN ferrous sulfate (Feosol) 325 mg PO DAILY hydrocortisone 2.5% (Proctosol HC) [address] BID sodium,potassium,mag sulfates 17.5-3.13-1.6 gram (Suprep Bowel Prep Kit) 480 mL orally; FOR COLONOSCOPY PREP triamterene-hydrochlorothiazid 37.5-25 mg 1 tab PO DAILY HPI HPI follow up 4 weeks medication: Details: Assessment & Plan (1) Pre-op examination: Code(s): Z01.818 - Encounter for other preprocedural examination Category: Medical (2) Anemia: Code(s): D64.9 - Anemia, unspecified Category: Medical (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 UTI with abd pain on the right side. It came and went and became very severe in August. Her PCP did not have the best communications and interactions with her. The pain was like a hot knife was stabbing me. i was fairly regionalized to the RUQ with only some movement from 3 fingers under rib to right flank. She had her GB out. She will have minor pain when she has a really bad day. She has been having constant diarrhea and near fecal incontinence. The best the stooling is pudding thickness but often watery. She has severe GERD but this is for qu9te a while. she takes OTC prilosec with good relief. She has ext roids. she has seen blood in the stooling. A week ago she had to wear a napkin she has so much bleeding. She has had severer N/V with past general surgeries no other problems. She denies any cardiac or respiratory problems. No ID problems. There is a strong FHX of breast cancer, no know stomach or CRC or polyps. Orders: Orders EGD/[facility] - GI Use Only Today D64.9 - Anemia, unspecified, K91.5 - Postcholecystectomy syndrome, Z01.818 - Encounter for other preprocedural examination Referrals Bariatric Surgery Referral E66.01 - Morbid (severe) obesity due to excess calories Medications: New cholestyramine (with sugar) 4 gram administer w/meal; avoid other meds within 1hr before or 4-6hr after dose 4 grams PO BID 60 ea 6RF K91.5 - Postcholecystectomy syndrome sodium,potassium,mag sulfates 17.5-3.13-1.6 gram (Suprep Bowel Prep Kit) 480 mL orally; FOR COLONOSCOPY PREP 354 mL 0RF hydrocortisone 2.5% (Proctosol HC) BE SURE TO INCLUDE RECTAL APPICATOR!! [address] BID 30 grams 6RF hemorrhoids K64.9 - Unspecified hemorrhoids EGD/COLONOSCOPY 04/19/2024 BIOPSY CORRESPONDENCE On 03/01/24 @ 11:32 Dedra Teresa Wrote To SouravNovember spoke w/ patient - wanted to inform me she has been doing better since starting the Cholestyramine and has seen a 90% turn around. patient inquiring if she is to continue taking it until she sees November and I advised her to continue to do so as script was sent with refills too Dedra Teresa removed from item. On 03/01/24 @ 11:28 Ольга Taylor Wrote To SouravNovember (2) patient would like a call back from november. she has questions on medication that was rx'd to her. On 02/26/24 @ 10:46 Dedra Teresa Wrote To Dedra Teresa [facility] on [facility] in [place] has medication in stock. I transferred script over to them and patient is aware of change. Dedra Teresa completed item. TODAY'S VISIT She became constipated with bid cholestyramine and went down to qd. Has had some bleeding intermittently after being constipated which is kind of to be expected. She continues to use her cream and her external hemorrhoids are decreasing but they are not completely gone. We spent time reviewing the pathophysiology of hemorrhoids and why they can not easily be removed without surgery. It will be important to control the underlying stooling. We also spent time reviewing the prep for the colonoscopy as she is a bit nervous about this. I tried to reassure her that this will be very easy procedure. We also discussed that she can titrate her cholestyramine, for example if she wants to use a full dose in the morning and half a packet in the evening etc. she can feel free to play with this to get just write for her body. She was recently started on calcium supplement and this is constipating so it is probably also affecting her stooling. We may need to change the cholestyramine dosing from time to time to compensate for changes in diet, changes in medications etc.. She is going to keep her appointment and after the colonoscopy on May 03. [facility] Medical History Pre-op examination Severe obesity (BMI >= 40) GABBY (iron deficiency anemia) HTN (hypertension), benign Hyperlipidemia Perimenopausal Gallstone Surgical History H/O reduction mammoplasty History of laparoscopic cholecystectomy (~11/25/23) Family History Mother Cancer Breast cancer Hypercholesteremia Diabetes Cardiovascular disease Thyroid disorder Thyroid cancer Lung cancer Father Cancer Lung cancer HTN (hypertension) Family/Other Cancer Maternal Grandmother Clotting disorder Cardiovascular disease Paternal Grandmother Clotting disorder Social History Housing: House Alcohol intake: current Alcohol intake frequency: holidays/special occasions only Patient Tobacco Use Status: Never used Tobacco e-Cigarette/Vaping Use: Never Used service: No Current occupational status: employed Current occupation: [employer] Current occupational exposures/hazards: No Cognitive needs: No Hearing needs: No Vision needs: Yes Review of Systems Const Denies fatigue, Denies fever(s), Denies night sweats, Denies poor appetite and Denies weight loss ENT Reports Normal hearing present, Denies dental pain, Denies dysphagia, Denies hearing loss, Denies mouth pain, Denies odynophagia, Denies throat swelling, Denies tongue swelling and Reports other (Dentition adequate) Card Reports no additional complaints Resp Reports no additional complaints GI Details: Denies abdominal pain, Denies melena, Denies bloating, Reports hematochezia, Reports constipation, Denies GI cramping, Denies dysphagia, Denies excessive flatus, Denies early satiety, Reports heartburn, Reports diarrhea, Denies nausea, Denies odynophagia, Denies vomiting and Denies hematemesis Skin/Breast Denies pruritus, Denies lesions, Denies rash and Denies jaundice Neuro Reports Normal hearing present and Denies Abnormal speech present Psych Reports anxiety Endo Denies fatigue Aller/Immun Denies throat swelling and Denies tongue swelling Physical Exam Vital Signs: BMI result Body Mass Index 40.6 Const General: cooperative, no acute distress, well developed and well groomed Nutritional Appearance: well nourished and obese Orientation/consciousness: oriented to person, oriented to place and oriented to time Limitations: No language barrier HEENT Head: Yes normocephalic and Yes atraumatic Eyes General: appearance normal, both eyes and all related structures Pupils: Equal, round and reactive pupils present Neck Neck: Yes normal visual inspection and Yes no lymphadenopathy Thyroid: Thyroid normal Resp Effort & Inspection: normal respiratory effort and able to speak in complete sentences Auscultation: clear to auscultation bilaterally Cardio Rate: regular rate Rhythm: regular rhythm Heart sounds: Normal, physiologic split S2 sound present Peripheral pulses: radial pulses present and posterior tibial pulses present GI Inspection: No distended, No Abdominal panniculus present and Yes obesity Palpation (GI): Soft to palpation, nontender, no guarding, not rigid and No hepatosplenomegaly present Percussion: Yes normal to percussion Auscultation: normal bowel sounds Rectal Exam - Female: deferred Skin General skin exam: no rashes or lesions noted, turgor normal, skin not dry, no jaundice, No spider nevi and no striae Rashes: no rashes Nails: normal Neuro General: oriented to person, oriented to place and oriented to time Cranial nerves: Yes Equal, round and reactive pupils present and Yes Normal hearing present Speech: No Abnormal speech present Extrem General: Yes normal to inspection, No clubbing, No cyanosis and No edema Psych Appearance: grossly normal and well kempt Mental Status: mental status grossly normal Speech and movement: Normal speech and movement present Affect: normal affect Attitude: cooperative Thought process: Normal thought process present and not confabulating Thought content: Normal thought content present Insight: Fair insight present (Psych) Judgement: Fair judgement present (Psych) Assessment & Plan Assessment & Plan (1) Post-cholecystectomy syndrome: Code(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 Has had some bleeding intermittently after being constipated which is kind of to be expected. She continues to use her cream and her external hemorrhoids are decreasing but they are not completely gone. We spent time reviewing the pathophysiology of hemorrhoids and why they can not easily be removed without surgery. It will be important to control the underlying stooling. We also spent time reviewing the prep for the colonoscopy as she is a bit nervous about this. I tried to reassure her that this will be very easy procedure. We also discussed that she can titrate her cholestyramine, for example if she wants to use a full dose in the morning and half a packet in the evening etc. she can feel free to play with this to get just write for her body. She was recently started on calcium supplement and this is constipating so it is probably also affecting her stooling. We may need to change the cholestyramine dosing from time to time to compensate for changes in diet, changes in medications etc.. She is going to keep her appointment and after the colonoscopy on May 03 EGD/COLONOSCOPY 04/19/2024 BIOPSY Coding Level of Care Code Est Pt Level 3 (56768) Diagnoses Post-cholecystectomy syndrome K91.5 Anemia D64.9
[2024-04-06 09:42] VITALS: BMI 40.6
== END 2024-04-06 10:16 | disposition home or self-care (01) ==
PROVIDERS: PCP Family Medicine; Visit Provider Nurse Practitioner
DX: K91.5 Postcholecystectomy syndrome (principal); D64.9 Anemia, unspecified
CPT/HCPCS: 99213

== ENCOUNTER → 2024-04-06 09:07 | Outpatient (BNVA) | payer OTHER, SELFPAY | PROVIDERS: PCP Family Medicine; Visit Provider Nurse Practitioner ==

== ENCOUNTER 2024-04-19 10:38 | Day surgery (SDC) | payer OTHER, SELFPAY ==
[2024-04-19 12:49] VITALS: BP 145/83; PULSE 95; RESP 16; TEMP 36.6; O2SAT 100; BMI 41.6
[2024-04-19] MEDS: Lactated Ringers 1,000 ML 80 ML IVCONT (13:08)
--- NOTE | 2024-04-19 13:40 | HO.ANESPROP2 ---
[facility] Active Problems Active Problems: All Active Problems Post-cholecystectomy syndrome (Acute) Hot flashes (Acute) Anemia (Acute) Postmenopausal bleeding (Acute) Well woman exam (Acute) Severe obesity (BMI >= 40) (Acute) GABBY (iron deficiency anemia) (Acute) HTN (hypertension), benign (Acute) Hyperlipidemia (Acute) Perimenopausal (Acute) Past Medical History Medical History Pre-op examination Severe obesity (BMI >= 40) GABBY (iron deficiency anemia) HTN (hypertension), benign Hyperlipidemia Perimenopausal Gallstone Family History Family History Mother Cancer Breast cancer Hypercholesteremia Diabetes Cardiovascular disease Thyroid disorder Thyroid cancer Lung cancer Father Cancer Lung cancer HTN (hypertension) Family/Other Cancer Maternal Grandmother Clotting disorder Cardiovascular disease Paternal Grandmother Clotting disorder Family history of problems with anesthesia: No Surgical History Surgical History History of dental surgery H/O reduction mammoplasty History of laparoscopic cholecystectomy (~11/25/23) History of Problems with Anesthesia: No Social History Social History Housing: House Are you a primary adult care provider to a significant other at home: No Do you presently have visiting nurse or other home services: No Alcohol intake: current Alcohol intake frequency: holidays/special occasions only Patient Tobacco Use Status: Never used Tobacco e-Cigarette/Vaping Use: Never Used Use of substances other than those prescribed or required for medical reasons: No Have you been hit, kicked, punched, or otherwise hurt by someone within the past year? If so, by whom?: No Are you DNR?: No Advance Directives: No Advance Directives Information Provided: Yes Recently lost weight without trying: No How much weight loss: Not applicable Eating poorly because of decreased appetite: No Nutrition screen score: 0 Nutrition Risks: No Nutritional Risk Patient : No : No Poor oral hygiene: No service: No Current occupational status: employed Current occupation: [employer] Current occupational exposures/hazards: No Cognitive needs: No Hearing needs: No Vision needs: Yes Meds Allergies Allergy/AdvReac Type Severity Reaction Status Date / Time apple Allergy Severe throat Verified 04/19/24 13:52 swelling adhesive tape Allergy Intermediate skin tear Verified 03/07/24 08:12 bandaid Allergy Unknown skin Uncoded 03/03/24 15:24 redness Active Medications: Current Medications Lactated Ringer's (Lr) 1,000 mls @ 80 mls/hr IVCONT .[id number] ANTONIO Last Admin: 04/19/24 13:08 Dose: 80 mls/hr Home Medications ?Medication ?Instructions ?Recorded ?Confirmed ?Last Taken ?Type ferrous sulfate 325 mg (65 mg 325 mg PO DAILY 11/18/23 04/19/24 04/17/24 History iron) tablet (Feosol) triamterene 37.5 1 tab PO DAILY 11/18/23 04/19/24 04/18/24 History mg-hydrochlorothiazide 25 mg tablet diphenhydramine 25 1 tab PO BEDTIME PRN Sleep 01/13/24 04/19/24 Unknown History mg-acetaminophen 500 mg tablet (Tylenol PM Extra Strength) calcium PO 03/07/24 04/06/24 Unknown History cholestyramine (with sugar) 4 gram 1 ea PO BID 04/06/24 04/19/24 Unknown History powder for susp in a packet Exam Height,Weight and Vital Signs: Height 5 ft 3 in Weight 106.594 kg Last Vital Signs Temp 97.9 F 04/19/24 12:49 Pulse 95 04/19/24 12:49 Resp 16 04/19/24 12:49 BP 145/83 H 04/19/24 12:49 Pulse Ox 100 04/19/24 12:49 O2 Del Method Room Air 04/19/24 12:49 Airway Mallampati Class: II TM Dist: >3cm Neck ROM: Full Loose/Missing/Broken Teeth: No Heart: RRR Lungs: CTA Assessment and Plan Assessment Anesthesia Assessment: Anesthesia Plan Discussed and Chart Reviewed Final Anesthetic Review Family History of Problems with Anesthesia: No History of Problems with Anesthesia: No NPO: Yes ASA Class: III Final Preanesthetic Review: Meds/Allgs Chart Reviewed, Consent Obtained/Reviewed and Anes Risks/Benef Reviewed Patient Risk: Intermediate Procedure Risk: Intermediate Anesthetic Plan Anesthetic Plan: MAC: Disposition: Standard PACU
--- NOTE | 2024-04-19 13:46 | MHC.SHP ---
Pre-Procedural Eval Section A - 24 Hr Update-Section A only Date of Service: 04/19/24 Section B - Complete if H&P > 30 days Chief Complaint: iron def anemia and rectal bleeding Relevant Family History (Specify if Yes): No Relevant Social History: None Present Medications: see Short Stay Collaborative assessment Medical History: Significant History History of Previous Operations: Relevant previous surgery/procedure and date(s) Allergies: Allergies Allergy/AdvReac Type Severity Reaction Status Date / Time adhesive tape Allergy Intermediate skin tear Verified 03/07/24 08:12 bandaid Allergy Unknown skin Uncoded 03/03/24 15:24 redness Review of Systems Sugical H&P ROS: Negative: Constitution, Cardiovascular, Respiratory, Neurological, Psychiatric, Hem-Onc, Allergic/Immunologic, Gastrointestinal, Genitourinary, Musculoskeletal, Integumentary, Endocrine and Eyes/Ears/Nose/Throat Exam Surgical H&P Exam: Normal: HEENT, Normal: Heart, Normal: Lungs, Normal: Extremities, Normal: Abdomen, Normal: Skin and Normal: Neurological Plan Diagnosis/Plan: Unchanged I have reviewed the history and physical and performed a pertinent physical examination on my patient. No changes have occurred unless specified. Time Spent With Patient Time: Total time managing care of this patient today ____ minutes.
--- NOTE | 2024-04-19 14:34 | HO.OPN-COLON ---
Colonoscopy Operative Note Operative Note Date of Service: 04/19/24 Narrative: Operative Information Procedure Description: EGD, Colonoscopy Indication: epigastric pain, anemia Anesthesia: MAC FLEXIBLE TRANSORAL UPPER GASTROINTESTINAL ENDOSCOPY AND COLONOSCOPY PROCEDURE NOTE UPPER ENDOSCOPY Consent: Indications for the procedure and potential complications of bleeding, perforation, reaction to medications and missed diagnosis were discussed with the patient and informed consent was obtained. Instrument: Olympus GIF H 190 J mid size upper endoscope Monitoring: Vital signs and clinical assessment, continuous EKG monitoring, Pulse oximetry, Carbon Dioxide monitoring and blood pressure monitoring were done throughout the procedure. Procedure: The patient was placed in the left lateral decubitis position and pre-procedure medications were administered and a bite block was placed. The endoscope was inserted into the mouth and advanced under direct vision to the third part of duodenum. A careful inspection was made as the upper endoscope was withdrawn including a retroflexed examination of the proximal stomach; Findings and interventions are described below. Findings: Larynx:normal Esophagus: GE junction at 32 cm, diaphragm hiatus at 35 cm, schatzki ring noted, esophagitis noted with boggy mucosa, with 3 cm sliding hiatal hernia Stomach: Mild erythema. Biopsies were obtained. Grade 2 flap valve on retroflexed examination of the cardia. Duodenum: Normal bulb and descending duodenum, Intervention: Biopsies as noted above, COLONOSCOPY Instrument: Olympus variable stiffness pediatric scope 190L Colonoscopy Monitoring: Vital signs and clinical assessment, continuous EKG monitoring, Pulse oximetry, Carbon Dioxide monitoring and blood pressure monitoring were done throughout the procedure. Colon withdrawal time was 14 minutes. Procedure: The patient was placed in the left lateral decubitis position and pre-procedure medications were administered. After a digital rectal examination of the ano-rectum, the video colonoscope was inserted into the rectum and advanced through the colon to the cecum/TI. The colonoscope was slowly withdrawn in a retrograde panoramic fashion and the colon mucosa was carefully examined including a retroflexed view of the rectum. Findings and interventions are described below. Procedure Difficulty:moderate Findings: Terminal Ileum-normal Cecum:normal Ascending Colon: normal Transverse Colon -normal Descending Colon: 5-6 mm sessile polyp removed with cold forceps Sigmoid Colon: mild diverticulosis Rectum: Retroflexion with large inflammed internal hemorrhoids, grade I, x 2 sessile polyps 4-6 mm removed with cold forceps Anorectum - normal Colon preparation: [place] Bowel Preparation Scale Right colon; 2 Transverse colon: 2 Left colon; 2 (0 = Unprepared colon segment with mucosa not seen due to solid stool that cannot be cleared. 1 = Portion of mucosa of the colon segment seen, but other areas of the colon segment not well seen due to staining, residual stool and/or opaque liquid. 2 = Minor amount of residual staining, small fragments of stool and/or opaque liquid, but mucosa of colon segment seen well. 3 = Entire mucosa of colon segment seen well with no residual staining, small fragments of stool or opaque liquid) Impression and Post Procedure Diagnosis: Endoscopy Findings: hiatal hernia esophagitis schatzki ring Colonoscopy Findings: diverticulosis colon polyps internal hemorrhoids Plan: Await Pathology results Repeat Colonoscopy in 5-7 years if adenomatous polyps, 10 yrs if hyperplastic or earlier if clinically indicated High fiber diet leaflet avoid straining at stool, epsom salts and sitz bath, anusol supps or cream consider colorectal referral for large hemorrhoids or referral for infrared coagulation trial of PPI Above findings were reviewed with the patient and relevant handouts were provided if indicated.
[2024-04-19 14:40] VITALS: BP 176/64; PULSE 103; RESP 18; TEMP 36.4; O2SAT 100
[2024-04-19 14:55] VITALS: BP 111/84; PULSE 88; RESP 20; O2SAT 100
[2024-04-19] MEDS: ondansetron HCL 4 MG/2 ML VIAL IVPUSH (14:55)
[2024-04-19 15:09] VITALS: BP 132/71; PULSE 84; RESP 16; TEMP 36.3; O2SAT 97
== END 2024-04-19 15:41 | disposition home or self-care (01) ==
PROVIDERS: PCP Physician Assistant; Visit Provider Internal Medicine Gastroenterology
PROC: (CPT 45380; principal; 2024-04-19 14:40)
DX: K62.5 Hemorrhage of anus and rectum (principal); D12.4 Benign neoplasm of descending colon; K62.1 Rectal polyp; K57.30 Diverticulosis of large intestine without perforation or abscess without bleeding; K64.0 First degree hemorrhoids; D50.9 Iron deficiency anemia, unspecified; K91.5 Postcholecystectomy syndrome; K44.9 Diaphragmatic hernia without obstruction or gangrene; K20.80 Other esophagitis without bleeding; K22.2 Esophageal obstruction; I10 Essential (primary) hypertension; E78.5 Hyperlipidemia, unspecified; E66.01 Morbid (severe) obesity due to excess calories; Z68.41 Body mass index [BMI] 40.0-44.9, adult; Z79.899 Other long term (current) drug therapy; L23.1 Allergic contact dermatitis due to adhesives; Z90.49 Acquired absence of other specified parts of digestive tract
CPT/HCPCS: 45380; 43239; 88305; 88313; 88342; J2405; J2704

== ENCOUNTER → 2024-04-19 10:38 | Outpatient (BNV) | payer OTHER, SELFPAY | PROVIDERS: PCP Physician Assistant; Visit Provider Internal Medicine Gastroenterology | DX: K44.9 Diaphragmatic hernia without obstruction or gangrene (principal); K20.90 Esophagitis, unspecified without bleeding; K22.2 Esophageal obstruction; K63.5 Polyp of colon; K57.90 Diverticulosis of intestine, part unspecified, without perforation or abscess without bleeding; K64.8 Other hemorrhoids | CPT/HCPCS: 43239; 45380 ==

== ENCOUNTER 2024-04-27 08:22 | Outpatient (AMB) | payer OTHER, SELFPAY ==
--- NOTE | 2024-04-27 08:28 | A.OFFPC_ITS ---
Vital Signs 04/27/24 08:32 Height 5 ft 3 in Weight 239 lb 6 oz BMI 42.4 BP 118/76 Blood Pressure Location Lt brachial Position Sitting Respiration 16 Pulse 86 Pulse Source Pulse Oximeter Pulse Oximetry (%) 100 Oxygen Delivery Method Room Air Intake Visit Reasons: bp f/u Intake Note: Blood pressure follow up Line Patrolman Required: No Allergies apple Allergy (Severe, Verified 04/27/24 08:30) throat swelling adhesive tape Allergy (Intermediate, Verified 04/27/24 08:30) skin tear bandaid Allergy (Unknown, Uncoded 04/27/24 08:30) skin redness Medication List - Last Reconciled 04/27/24 by Cokoie Hubbard PA-C [calcium PO] cholestyramine (with sugar) 4 gram 1 ea PO BID diphenhydramine-acetaminophen 25-500 mg (Tylenol PM Extra Strength) 1 tab PO BEDTIME PRN ferrous sulfate (Feosol) 325 mg PO DAILY hydrocortisone 2.5% (Proctosol HC) 1 appl MT BID pantoprazole 40 mg PO DAILY triamterene-hydrochlorothiazid 37.5-25 mg 1 tab PO DAILY Tobacco use date assessed: 12/14/23 Dental Screening Dental Screen Date: 12/14/23 HPI bp f/u HPI Details Pt is a 53 y/o female who presents today to follow up. CV: bp today is 118/76. Denies chest pain, sob, palpitations. She is well controlled on triamterene/hctz 37.5-25 mg. Cholesterol is diet controlled. Heme: Has a hx of joshua and is on iron. She states she does not get her menses frequently anymore. Her LMP 08/2023. She is perimenopause. We did also reviewed that her iron is low end normal. GI: She had a recent double endoscopy and states that she has an appointment on 05/03 to review the results. She states that they told her she did have internal and external hemorrhoids.. 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 Mammo: UTD, 02/20/24 Colonoscopy: Never had- Getting double endoscopy this month. Pap: ?2019 with her previous pcp Family hx of breast ca, unsure if fam members have had genetic workups. [facility] Medical History Pre-op examination Severe obesity (BMI >= 40) JOSHUA (iron deficiency anemia) HTN (hypertension), benign Hyperlipidemia Perimenopausal Gallstone Surgical History History of dental surgery H/O reduction mammoplasty History of laparoscopic cholecystectomy (~11/25/23) Family History Mother Cancer Breast cancer Hypercholesteremia Diabetes Cardiovascular disease Thyroid disorder Thyroid cancer Lung cancer Father Cancer Lung cancer HTN (hypertension) Family/Other Cancer Maternal Grandmother Clotting disorder Cardiovascular disease Paternal Grandmother Clotting disorder Social History Housing: House Are you a primary healthcare manager to a significant other at home: No Do you presently have visiting nurse or other home services: No Alcohol intake: current Alcohol intake frequency: holidays/special occasions only Patient Tobacco Use Status: Never used Tobacco e-Cigarette/Vaping Use: Never Used service: No Current occupational status: employed Current occupation: [employer] Current occupational exposures/hazards: No Cognitive needs: No Hearing needs: No Vision needs: Yes Questionnaire Thrive Questionnaire Date Thrive assessed: 12/14/23 KELLY-7 AMB Questionnaire KELLY-7 Date KELLY - 7 assessed: 12/14/23 Source: Developed by Drs. Diomedes Oscar, Cathi Rodriguez, Gilberto Patricia and colleagues, with an educational lidia from [employer]. Physical exam (Primary Care) Vital Signs: Last Vital Signs Pulse 86 04/27/24 08:32 Resp 16 04/27/24 08:32 BP 118/76 04/27/24 08:32 Pulse Ox 100 04/27/24 08:32 Oxygen Delivery Method Room Air 04/27/24 08:32 BMI result Body Mass Index 42.4 Tobacco/Smoking Status: Tobacco use Status Tobacco use date assessed 12/14/23 04/27/24 08:31 Patient Tobacco Use Status Never used Tobacco 04/27/24 08:31 e-Cigarette/Vaping Use Never Used 04/27/24 08:31 Thrive Assessment: Date of Thrive Assessment Date Thrive assessed 12/14/23 04/27/24 08:31 Const Orientation/consciousness: patient oriented x3 HENMT Ears: hearing grossly normal bilaterally Neck Thyroid: Thyroid normal Lymphatic: no lymphadenopathy noted Resp Auscultation: clear to auscultation bilaterally Cardio Rate: regular rate Rhythm: regular rhythm Heart sounds: S1 normal heart sound present and S2 normal heart sound present GI Inspection: Yes normal to inspection Palpation (GI): Soft to palpation and Other GI palpation findings present (nontender, no cva tenderness) Auscultation: normoactive bowel sounds Rectal Exam - Female: deferred Skin General skin exam: no rashes or lesions noted Neuro General: patient oriented x3, gait normal and no focal motor deficits Assessment and Plan Assessment & Plan (1) JOSHUA (iron deficiency anemia): Code(s): D50.9 - Iron deficiency anemia, unspecified Qualifiers: Iron deficiency anemia type: chronic blood loss Qualified Code(s): D50.0 - Iron deficiency anemia secondary to blood loss (chronic) Plan: Continue current regimen. We will recheck CBC. (2) HTN (hypertension), benign: Code(s): I10 - Essential (primary) hypertension Plan: WNL. Continue current regimen Plan Follow up 6 months. Sooner if needed. Patient understands and agrees with the plan. Orders: Orders Comprehensive Met. Panel Today D50.0 - Iron deficiency anemia secondary to blood loss (chronic), I10 - Essential (primary) hypertension Complete Blood Count Auto Diff Today D50.0 - Iron deficiency anemia secondary to blood loss (chronic), I10 - Essential (primary) hypertension Medications: New cyanocobalamin (vitamin B-12) 1,000 mcg PO DAILY 90 caps 3RF Coding Level of Care Code Est Pt Level 4 (11990) Complex EM visit Add On G2211 Diagnoses Iron deficiency anemia due to chronic blood loss D50.0 Iron deficiency anemia type: chronic blood loss HTN (hypertension), benign I10
[2024-04-27 08:32] VITALS: BP 118/76; PULSE 86; RESP 16; O2SAT 100; BMI 42.4
== END 2024-04-27 09:10 | disposition home or self-care (01) ==
PROVIDERS: PCP Family Medicine; Visit Provider Physician Assistant
DX: D50.0 Iron deficiency anemia secondary to blood loss (chronic) (principal); I10 Essential (primary) hypertension
CPT/HCPCS: 99214

== ENCOUNTER 2024-05-03 15:41 | Outpatient (AMB) | payer OTHER, SELFPAY ==
[2024-05-03 15:41] VITALS: BP 132/80; PULSE 101; BMI 42.2
--- NOTE | 2024-05-03 15:41 | A.OFFVIS_ITS ---
Vital Signs 05/03/24 15:41 Height 5 ft 3 in Weight 238 lb 1.588 oz BMI 42.2 BP 132/80 Blood Pressure Location Lt brachial Position Sitting Pulse 101 H Intake Visit Reasons: s/p egd/colon Intake Note: Anna presents to in office follow up s/p EGD and colonoscopy. CC: Patient reports that she is trying to get her BM to be regular again, since after procedure she reports either constipation or loose stools. Ore Mixer Required: No Accompanied by: Self / Same As Patient Allergies apple Allergy (Severe, Verified 05/03/24 15:45) throat swelling adhesive tape Allergy (Intermediate, Verified 05/03/24 15:45) skin tear No Known Drug Allergies Allergy (Unknown, Verified 05/03/24 15:45) none bandaid Allergy (Unknown, Uncoded 04/27/24 08:30) skin redness HPI HPI s/p egd/colon: Details: Assessment & Plan (1) Post-cholecystectomy syndrome: Code(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 Has had some bleeding intermittently after being constipated which is kind of to be expected. She continues to use her cream and her external hemorrhoids are decreasing but they are not completely gone. We spent time reviewing the pathophysiology of hemorrhoids and why they can not easily be removed without surgery. It will be important to control the underlying stooling. We also spent time reviewing the prep for the colonoscopy as she is a bit nervous about this. I tried to reassure her that this will be very easy procedure. We also discussed that she can titrate her cholestyramine, for example if she wants to use a full dose in the morning and half a packet in the evening etc. she can feel free to play with this to get just write for her body. She was recently started on calcium supplement and this is constipating so it is probably also affecting her stooling. We may need to change the cholestyramine dosing from time to time to compensate for changes in diet, changes in medications etc.. She is going to keep her appointment and after the colonoscopy on May 03 EGD/COLONOSCOPY 04/20/24 Findings: Larynx:normal Esophagus: GE junction at 32 cm, diaphragm hiatus at 35 cm, schatzki ring noted, esophagitis noted with boggy mucosa, with 3 cm sliding hiatal hernia Stomach: Mild erythema. Biopsies were obtained. Grade 2 flap valve on retroflexed examination of the cardia. Duodenum: Normal bulb and descending duodenum, Findings: Terminal Ileum-normal Cecum:normal Ascending Colon: normal Transverse Colon -normal Descending Colon: 5-6 mm sessile polyp removed with cold forceps Sigmoid Colon: mild diverticulosis Rectum: Retroflexion with large inflamed internal hemorrhoids, grade I, x 2 sessile polyps 4-6 mm removed with cold forceps Anorectum - normal Impression and Post Procedure Diagnosis: Endoscopy Findings: hiatal hernia esophagitis schatzki ring Colonoscopy Findings: diverticulosis colon polyps internal hemorrhoids Plan: Await Pathology results Repeat Colonoscopy in 5-7 years if adenomatous polyps, 10 yrs if hyperplastic or earlier if clinically indicated High fiber diet leaflet avoid straining at stool, epsom salts and sitz bath, anusol supps or cream consider colorectal referral for large hemorrhoids or referral for infrared coagulation trial of PPI BIOPSY Received: 04/20/24 Diagnosis A. Duodenum, biopsy: Small intestinal mucosa within normal limits. B. Stomach, biopsy: Antral-type mucosa with mild chronic inactive inflammation; no Helicobacter organisms seen. C. EG junction, biopsy: - Cardiac-type mucosa with moderate chronic active inflammation; no intestinal metaplasia seen. - Active esophagitis (maximum eosinophil count 4 per high powered field). D. Esophagus, distal, biopsy: Active esophagitis (maximum eosinophil count 5 per high powered field). E. Colon, descending, polypectomy: Tubular adenoma; negative for high-grade dysplasia or carcinoma. F. Rectum, polypectomy: Hyperplastic mucosal polyp TODAY'S VISIT She is feeling better with the pantoprazole and her GERD. He also has roids discussed getting bowels regulated before surgery, using cream. Discussed fiber, bran muffin as greens not agreeing with her. She is going into her busy season at work so will do a 3 month follow-up but if she can regulate her bowels her problems are controlled she can extend that out further ROV 3 mos. [facility] Medical History Pre-op examination Severe obesity (BMI >= 40) GABBY (iron deficiency anemia) HTN (hypertension), benign Hyperlipidemia Perimenopausal Gallstone Surgical History History of dental surgery H/O reduction mammoplasty History of laparoscopic cholecystectomy (~11/25/23) Family History Mother Cancer Breast cancer Hypercholesteremia Diabetes Cardiovascular disease Thyroid disorder Thyroid cancer Lung cancer Father Cancer Lung cancer HTN (hypertension) Family/Other Cancer Maternal Grandmother Clotting disorder Cardiovascular disease Paternal Grandmother Clotting disorder Social History Housing: House Are you a primary intensive care anaesthetist to a significant other at home: No Do you presently have visiting nurse or other home services: No Alcohol intake: current Alcohol intake frequency: holidays/special occasions only Patient Tobacco Use Status: Never used Tobacco e-Cigarette/Vaping Use: Never Used service: No Current occupational status: employed Current occupation: [employer] Current occupational exposures/hazards: No Cognitive needs: No Hearing needs: No Vision needs: Yes Review of Systems Const Denies fatigue, Denies fever(s), Denies night sweats, Denies poor appetite and Denies weight loss Eyes Details: glasses Reports requires corrective lenses ENT Reports Normal hearing present, Denies dysphagia, Denies odynophagia, Denies throat swelling and Denies tongue swelling Card Reports no additional complaints Resp Reports no additional complaints GI Details: Denies abdominal pain, Denies melena, Reports bloating, Denies hematochezia, Denies constipation, Denies GI cramping, Denies dysphagia, Denies excessive flatus, Denies early satiety, Reports heartburn, Denies diarrhea, Reports loose stools, Denies nausea, Denies odynophagia, Denies vomiting and Denies hematemesis Skin/Breast Denies pruritus, Denies lesions, Denies rash and Denies jaundice Neuro Reports Normal hearing present and Denies Abnormal speech present Endo Denies fatigue Aller/Immun Denies throat swelling and Denies tongue swelling Physical Exam Vital Signs: Last Vital Signs Pulse 101 H 05/03/24 15:41 BP 132/80 05/03/24 15:41 BMI result Body Mass Index 42.2 Const General: cooperative, no acute distress, well developed and well groomed Nutritional Appearance: well nourished and obese morbidly obese Orientation/consciousness: oriented to person, oriented to place and oriented to time Limitations: No language barrier HEENT Head: Yes normocephalic and Yes atraumatic Eyes General: appearance normal, both eyes and all related structures Pupils: Equal, round and reactive pupils present Neck Neck: Yes normal visual inspection and Yes no lymphadenopathy Thyroid: Thyroid normal Resp Effort & Inspection: normal respiratory effort and able to speak in complete sentences Auscultation: clear to auscultation bilaterally Cardio Rate: regular rate Rhythm: regular rhythm Heart sounds: Normal, physiologic split S2 sound present Peripheral pulses: radial pulses present and posterior tibial pulses present GI Inspection: No distended, Yes Abdominal panniculus present and Yes obesity Palpation (GI): Soft to palpation, nontender, no guarding, not rigid and No hepatosplenomegaly present Percussion: Yes normal to percussion Auscultation: normal bowel sounds Rectal Exam - Female: deferred Skin General skin exam: no rashes or lesions noted, turgor normal, skin not dry, no jaundice, No spider nevi and no striae Rashes: no rashes Nails: normal Neuro General: oriented to person, oriented to place and oriented to time Cranial nerves: Yes Equal, round and reactive pupils present and Yes Normal hea ring present Speech: No Abnormal speech present Extrem General: Yes normal to inspection, No clubbing, No cyanosis and No edema Psych Appearance: grossly normal and well kempt Mental Status: mental status grossly normal Speech and movement: Normal speech and movement present Affect: normal affect Attitude: cooperative Thought process: Normal thought process present and not confabulating Thought content: Normal thought content present Insight: Limited insight present (Psych) Judgement: Limited judgement present (Psych) Results Reviewed Results Reviewed: EGD/COLONOSCOPY 04/20/24 Findings: Larynx:normal Esophagus: GE junction at 32 cm, diaphragm hiatus at 35 cm, schatzki ring noted, esophagitis noted with boggy mucosa, with 3 cm sliding hiatal hernia Stomach: Mild erythema. Biopsies were obtained. Grade 2 flap valve on retroflexed examination of the cardia. Duodenum: Normal bulb and descending duodenum, Findings: Terminal Ileum-normal Cecum:normal Ascending Colon: normal Transverse Colon -normal Descending Colon: 5-6 mm sessile polyp removed with cold forceps Sigmoid Colon: mild diverticulosis Rectum: Retroflexion with large inflamed internal hemorrhoids, grade I, x 2 sessile polyps 4-6 mm removed with cold forceps Anorectum - normal Impression and Post Procedure Diagnosis: Endoscopy Findings: hiatal hernia esophagitis schatzki ring Colonoscopy Findings: diverticulosis colon polyps internal hemorrhoids Plan: Await Pathology results Repeat Colonoscopy in 5-7 years if adenomatous polyps, 10 yrs if hyperplastic or earlier if clinically indicated High fiber diet leaflet avoid straining at stool, epsom salts and sitz bath, anusol supps or cream consider colorectal referral for large hemorrhoids or referral for infrared coagulation trial of PPI BIOPSY Received: 04/20/24 Diagnosis A. Duodenum, biopsy: Small intestinal mucosa within normal limits. B. Stomach, biopsy: Antral-type mucosa with mild chronic inactive inflammation; no Helicobacter organisms seen. C. EG junction, biopsy: - Cardiac-type mucosa with moderate chronic active inflammation; no intestinal metaplasia seen. - Active esophagitis (maximum eosinophil count 4 per high powered field). D. Esophagus, distal, biopsy: Active esophagitis (maximum eosinophil count 5 per high powered field). E. Colon, descending, polypectomy: Tubular adenoma; negative for high-grade dysplasia or carcinoma. F. Rectum, polypectomy: Hyperplastic mucosal polyp Assessment & Plan Assessment & Plan (1) Tubular adenoma of colon: Comment: 03/2024 scope repeat in 5 years Code(s): D12.6 - Benign neoplasm of colon, unspecified Category: Medical (2) Post-cholecystectomy syndrome: Code(s): K91.5 - Postcholecystectomy syndrome Category: Medical (3) GERD (gastroesophageal reflux disease): Code(s): K21.9 - Gastro-esophageal reflux disease without esophagitis Category: Medical Plan She is feeling better with the pantoprazole and her GERD. He also has roids discussed getting bowels regulated before surgery, using cream. Discussed fiber, bran muffin as greens not agreeing with her. She is going into her busy season at work so will do a 3 month follow-up but if she can regulate her bowels her problems are controlled she can extend that out further ROV 3 mos. Coding Level of Care Code Est Pt Level 4 (21826) Diagnoses Tubular adenoma of colon D12.6 Post-cholecystectomy syndrome K91.5 GERD (gastroesophageal reflux disease) K21.9 Time Spent (min) 32
== END 2024-05-03 16:37 | disposition home or self-care (01) ==
PROVIDERS: PCP Family Medicine; Visit Provider Nurse Practitioner
DX: D12.6 Benign neoplasm of colon, unspecified (principal); K91.5 Postcholecystectomy syndrome; K21.9 Gastro-esophageal reflux disease without esophagitis
CPT/HCPCS: 99214

== ENCOUNTER → 2024-05-03 15:41 | Outpatient (BNVA) | payer OTHER, SELFPAY | PROVIDERS: PCP Family Medicine; Visit Provider Nurse Practitioner ==

== ENCOUNTER 2024-05-28 10:06 | Outpatient (REF) | payer OTHER, SELFPAY ==
[2024-05-28 10:18] LABS: MANUAL DIFF FLAG NO
[2024-05-28 10:49] LABS: Basophils Percent Auto 0.7 % (0-2); Eosinophils Absolute Auto 0.2 X10*3/uL (0.0-0.4); Hematocrit 35.3 % (37.0-47.0); Hemoglobin 11.7 g/dl (12.0-16.0); Imm Gran Abs Auto 0.03 X10*3/uL (0.00-0.03); Imm Gran Pct Auto 0.7 % (0.0-0.4); Lymphocytes Absolute Auto 1.3 X10*3/uL (1.2-4.9); Lymphocytes Percent Auto 32.3 % (20-40); Mean Corpuscular HGB Conc 33.1 g/dl (31.0-35.0); Mean Corpuscular Volume 87.4 fL (80.0-98.0); Mean Platelet Volume 9.9 fL (9.4-12.3); Monocytes Absolute Auto 0.3 X10*3/uL (0.1-1.2); Monocytes Percent Auto 8.2 % (2-11); Neutrophils Absolute Auto 2.1 x10*3/uL (2.0-8.3); Neutrophils Percent Auto 52.1 % (45-73); Platelet Count 365 X10*3/uL (160-400); Red Blood Count 4.04 X10*6/uL (4.20-5.50); Red Cell Distribution Width 13.1 % (11.0-16.0)
[2024-05-28 11:07] LABS: Appearance Urine Cloudy; Color Urine Yellow; Glucose Urine UA Negative (Negative); Leukocyte Esterase Urine Negative (Negative); Nitrite Urine Negative (Negative); Specific Gravity - Urine 1.015 (1.005-1.025); Urine Blood Negative (Negative); Urine Ketones Negative (Negative); Urine Protein Negative (Neg-Trace)
[2024-05-28 12:06] LABS: Alanine Aminotransferase 15 U/L (0-31); Albumin Level 4.1 g/dL (3.5-5.0); Alkaline Phosphatase 49 U/L (39-117); Anion Gap 11 (12-20); Aspartate Amino Transferase 12 U/L (5-31); Bilirubin Total 0.3 mg/dL (0.0-1.0); Blood Urea Nitrogen 13 mg/dL (9-16); Calcium 9.5 mg/dL (8.4-10.2); Carbon Dioxide 28 mmol/L (22-29); Chloride 105 mmol/L (96-108); Estimated Glomerular Filt Rate > 60; Glucose Random 86 mg/dL (60-115); Potassium 3.7 mmol/L (3.3-5.1); Sodium 140 mmol/L (135-145); Total Protein 7.3 g/dL (6.5-8.0)
== END 2024-05-28 10:07 | disposition home or self-care (01) ==
LOC: HO.LAB 10:06
PROVIDERS: PCP Family Medicine; Visit Provider Physician Assistant
DX: Z01.812 Encounter for preprocedural laboratory examination (principal); D50.0 Iron deficiency anemia secondary to blood loss (chronic); I10 Essential (primary) hypertension
CPT/HCPCS: 36415; 80053; 81003; 85025

== ENCOUNTER 2024-09-16 08:03 | Outpatient (REF) | payer OTHER, SELFPAY ==
[2024-09-16 13:14] LABS: Influenza A PCR POSITIVE (Negative); Influenza B PCR NEGATIVE (Negative); Resp Syncy Virus RNA Qual PCR NEGATIVE (Negative); SARS COV2 PCR INHOUSE NEGATIVE (Negative)
== END 2024-09-16 08:04 | disposition home or self-care (01) ==
LOC: HO.LNP 08:03
PROVIDERS: Visit Provider Nurse Practitioner Family
DX: R09.89 Other specified symptoms and signs involving the circulatory and respiratory systems (principal); R68.89 Other general symptoms and signs; R05.9 Cough, unspecified
CPT/HCPCS: 0241U

== ENCOUNTER 2024-09-16 08:03 | Outpatient (REF) | payer OTHER, SELFPAY ==
--- NOTE | ~2024-09-16 | XR_ITS ---
EXAMINATION: XR CHEST CLINICAL INFORMATION: R68.89 - Other general symptoms and signs COMPARISON: 01/11/2022. TECHNIQUE: 2 views of the chest were obtained. FINDINGS: The cardiac, hilar, and mediastinal contours are normal. The lungs are clear bilaterally. There is no pneumothorax or pleural effusion. There is no focal osseous or soft tissue abnormality. XR/XR chest 2V IMPRESSION: Normal chest. Electronically signed by: Shalom Garcia MD 09/16/2024 09:49 AM MILLA
== END 2024-09-16 08:04 | disposition home or self-care (01) ==
LOC: HO.HMGCX 08:03
PROVIDERS: PCP Family Medicine; Visit Provider Nurse Practitioner Family
DX: R68.89 Other general symptoms and signs (principal); R05.9 Cough, unspecified
CPT/HCPCS: 71046

== ENCOUNTER → 2024-09-16 09:28 | Outpatient (BNV) | payer OTHER, SELFPAY | PROVIDERS: PCP Family Medicine; Visit Provider Radiology Diagnostic Radiology | DX: R68.89 Other general symptoms and signs (principal) | CPT/HCPCS: 71046 ==

== ENCOUNTER 2024-10-27 07:45 | Outpatient (AMB) | payer OTHER, SELFPAY ==
--- NOTE | 2024-10-27 08:05 | MHC.PC.OV ---
Vital Signs 10/27/24 08:12 10/27/24 08:18 BMI Reason not done Patient refused/unable BP 126/96 H 112/86 Blood Pressure Location Lt brachial Lt brachial Position Sitting Sitting Respiration 14 Pulse 88 Pulse Source Pulse Oximeter Pulse Oximetry (%) 99 Oxygen Delivery Method Room Air Intake Visit Reasons: physical Intake Note: Physical. Was here 09/16 with flu A and still experiencing mucous and nausea. Gps Navigation Installer Required: No Allergies apple Allergy (Severe, Verified 10/27/24 08:07) throat swelling adhesive tape Allergy (Intermediate, Verified 10/27/24 08:07) skin tear No Known Drug Allergies Allergy (Unknown, Verified 10/27/24 08:07) none bandaid Allergy (Unknown, Uncoded 10/27/24 08:07) skin redness Medication List - Last Reconciled 10/27/24 by Cookie Hubbard PA-C [calcium PO] cetirizine (Zyrtec) 10 mg PO DAILY PRN cholestyramine (with sugar) 4 gram 1 ea PO BID cyanocobalamin (vitamin B-12) 1,000 mcg PO DAILY diphenhydramine-acetaminophen 25-500 mg (Tylenol PM Extra Strength) 1 tab PO BEDTIME PRN ferrous sulfate (Feosol) 325 mg PO DAILY fluticasone propionate 50 mcg/actuation 1 spray intranasal DAILY hydrocortisone 2.5% (Proctosol HC) 1 appl [place] BID ibuprofen-acetaminophen 125-250 mg (Advil Dual Action) 1 tab PO Q8H PRN pantoprazole 40 mg PO DAILY psyllium husk (Metamucil) 1 tbsp PO BID triamterene-hydrochlorothiazid 37.5-25 mg 1 tab PO DAILY Tobacco use date assessed: 12/14/23 Dental Screening Dental Screen Date: 12/14/23 HPI physical HPI Details Pt is a 54-year-old female who presents today for a physical exam. CV: bp today is 112/86. Denies chest pain, sob, palpitations. She is well controlled on triamterene/hctz 37.5-25 mg. Cholesterol is diet controlled. Ortho: following with [facility] for bilateral knee pain. She states that she is getting gel injections which are helpful. She states that her left knee is exacerbated however am she has been using red light therapy. Has an appointment scheduled with ortho on 11/11. Heme: Has a hx of joshua and is on iron. She states she did not have period for a full year but did just get it 1 year and 3 weeks from her last one. Her LMP 09/2024. GI: She is on pantoprazole for GERD and feels a lot better. She no longer needs questran for post-cholecystectomy diarrhea. She states the rectal bleeding and diarrhea have resolved. Musculoskeletal: following with [facility]. Mammo: UTD, 02/20/24 Colonoscopy: Up-to-date, repeat colonoscopy in 2028, endoscopy indicated gastritis Traffic Inspector: Saw Dr. Marie for postmenopausal bleeding and did have a biopsy which showed inactive endometrium. Given her reoccurrence of bleeding she is scheduled 12/07/24 . Family hx of breast ca, unsure if fam members have had genetic workups. [facility] Medical History Pre-op examination Severe obesity (BMI >= 40) JOSHUA (iron deficiency anemia) HTN (hypertension), benign Hyperlipidemia Perimenopausal Gallstone Surgical History History of dental surgery H/O reduction mammoplasty History of laparoscopic cholecystectomy (~11/25/23) Family History Mother Cancer Breast cancer Hypercholesteremia Diabetes Cardiovascular disease Thyroid disorder Thyroid cancer Lung cancer Father Cancer Lung cancer HTN (hypertension) Family/Other Cancer Maternal Grandmother Clotting disorder Cardiovascular disease Paternal Grandmother Clotting disorder Social History Housing: House Are you a primary animal care specialist to a significant other at home: No Do you presently have visiting nurse or other home services: No Alcohol intake: current Alcohol intake frequency: holidays/special occasions only Patient Tobacco Use Status: Never used Tobacco e-Cigarette/Vaping Use: Never Used service: No Current occupational status: employed Current occupation: [employer] Current occupational exposures/hazards: No Cognitive needs: No Hearing needs: No Vision needs: Yes Questionnaire PHQ-9 Over the last 2 weeks, how often have you been bothered by any of the following problems? 1. Little interest or pleasure in doing things: not at all 2. Feeling down, depressed, or hopeless: not at all 3. Trouble falling or staying asleep, or sleeping too much: not at all 4. Feeling tired or having little energy: not at all 5. Poor appetite or overeating: not at all 6. Feeling bad about yourself - or that you are a failure or have let yourself or your family down: not at all 7. Trouble concentrating on things, such as reading the newspaper or watching television: not at all 8. Moving or speaking so slowly that other people could have noticed. Or the opposite - being so fidgety or restless that you have been moving around a lot more than usual: not at all 9. Thoughts that you would be better off or of hurting yourself in some way: not at all Total score: 0 Depression Screening Interpretation: Negative Depression Screening Done: Yes 27277 - PHQ-9 Billing: Yes Source: Developed by Drs. Diomedes Oscar, Cathi Rodriguez, Gilberto Patricia and colleagues, with an educational lidia from [employer]. Thrive Questionnaire Date Thrive assessed: 10/20/24 I am a: Patient What is your living situation today?: I have a steady place to live Within the past 12 months, did the food you bought not last and you didn't have the money to get more?: I choose not to answer this question Within the past 12 months, did you worry whether your food would run out before you got money to buy more?: I choose not to answer this question Do you have trouble paying for medicines?: I choose not to answer this question Do you have trouble getting transportation to medical appointments?: I choose not to answer this question Do you have trouble paying your heating and electricity bill?: I choose not to answer this question Do you have trouble taking care of your child, family member or friend?: No Do you have trouble with day-to-day activities such as bathing, preparing meals, shopping, managing finances, etc.?: I choose not to answer this question Are you currently unemployed and looking for a job?: No Are you interested in more education?: No Please select the resources that you would like help with: None Currently or been in a relationship where the following occur: No concerns reported THRIVE Score: 0 AUDIT C Alcohol Use Questionnaire (AUDIT-C) 1. How often do you have a drink containing alcohol?: Never Total Score: 0 Score Reviewed/Action Taken: Yes KELLY-7 AMB Questionnaire KELLY-7 Date KELLY - 7 assessed: 12/14/23 Feeling nervous, anxious, or on edge: 0 = Not at all Not being able to stop or control worryin = Not at all Worrying too much about different things: 0 = Not at all Trouble relaxin = Not at all Being so restless that it is hard to sit still: 0 = Not at all Becoming easily annoyed or irritable: 0 = Not at all Feeling afraid as if something awful might happen: 0 = Not at all Total KELLY-7 score (0-4 normal; 5-9 mild; 10-14 moderate; 15-21 severe): 0 Source: Developed by Drs. Diomedes Oscar, Cathi Rodriguez, Gilberto Patricia and colleagues, with an educational lidia from [employer]. KELLY-7 Assessment Billing KELLY-7 Assessment Tool: KELLY-7 Assessment 08680 Physical exam (Primary Care) Vital Signs: Last Vital Signs Pulse 88 10/27/24 08:12 Resp 14 10/27/24 08:12 BP 126/96 H 10/27/24 08:12 Pulse Ox 99 10/27/24 08:12 Oxygen Delivery Method Room Air 10/27/24 08:12 Tobacco/Smoking Status: Tobacco use Status Tobacco use date assessed 12/14/23 10/27/24 08:07 Patient Tobacco Use Status Never used Tobacco 10/27/24 08:07 e-Cigarette/Vaping Use Never Used 10/27/24 08:07 PHQ-9: PHQ-9 Score PHQ-9: Total score 0 10/27/24 08:07 Depression Screening Interpretation: Negative Thrive Assessment: Date of Thrive Assessment Date Thrive assessed 10/20/24 10/27/24 08:07 Currently or been in a relationship where the following occur: No concerns reported Const Orientation/consciousness: patient oriented x3 HENMT Ears: hearing grossly normal bilaterally and TM's normal bilaterally General nose exam: No nasal polyps present Face and sinus: Yes sinuses nontender Mouth: Normal oral and palatal mucosa present Eyes Pupils: Equal, round and reactive pupils present EOM: EOMs intact bilaterally Neck Neck: Yes full ROM and Yes no lymphadenopathy Thyroid: Thyroid normal Chest Chest palpation & inspection: normal inspection of the chest Resp Auscultation: clear to auscultation bilaterally Cardio Rate: regular rate Rhythm: regular rhythm Heart sounds: S1 normal heart sound present and S2 normal heart sound present Peripheral pulses: Peripheral pulses 2+ throughout GI Other: Soft, nontender Auscultation: normal bowel sounds Rectal Exam - Female: deferred General: Yes no CVA tenderness Back/Spine/Pelvis Other: Nontender Back: no CVA tenderness Skin General skin exam: no rashes or lesions noted Neuro General: patient oriented x3, gait normal, CN's II-XI intact bilaterally and deep tendon reflexes 2+ bilaterally Cranial nerves: Yes Equal, round and reactive pupils present Motor exam (neuro): 5/5 motor strength present throughout Sensory Exam: double simultaneous stimulation for sensation normal Coordination: [id number] test normal and Romberg test negative Extrem General: Yes normal to inspection and Yes full ROM Psych Affect: normal affect Attitude: cooperative Thought process: Normal thought process present Thought content: Normal thought content present Insight: Good insight present (Psych) Judgement: Good judgement present (Psych) Results Reviewed Results Reviewed: Laboratory Tests 12/19/23 05/28/24 10:25 10:15 Sodium 140 Potassium 3.7 Chloride 105 Carbon Dioxide 28 Anion Gap 11 L BUN 13 Creatinine 0.80 Estimated GFR > 60 Random Glucose 86 Calcium 9.5 Total Bilirubin 0.3 AST 12 ALT 15 Alkaline Phosphatase 49 Total Protein 7.3 Albumin 4.1 Triglycerides 151 H Cholesterol 194 LDL Cholesterol, Calc 123 H HDL Cholesterol 41 TSH 0.41 Coding Level of Care Code Est Pt Prev Care 40-64y(90706) Diagnoses Routine general medical examination at a health care facility Z00.00 HTN (hypertension), benign I10 Iron deficiency anemia due to chronic blood loss D50.0 Iron deficiency anemia type: chronic blood loss Mixed hyperlipidemia E78.2 Hyperlipidemia type: mixed hyperlipidemia GERD (gastroesophageal reflux disease) K21.9 Severe obesity (BMI >= 40) E66.01 Additional Codes PHQ-9 - 16286 - PHQ-9 Billing: Yes ([id number]) KELLY-7 Assessment Billing - KELLY-7 Assessment Tool: KELLY-7 Assessment 65363 ([id number]) Assessment & Plan Assessment & Plan (1) Routine general medical examination at a health care facility: Code(s): Z00.00 - Encounter for general adult medical examination without abnormal findings Plan: Health maintenance reviewed. (2) HTN (hypertension), benign: Code(s): I10 - Essential (primary) hypertension Category: Medical Plan: A little elevated today above goal but states that her knees are very painful. We will do a short term follow up. (3) JOSHUA (iron deficiency anemia): Code(s): D50.9 - Iron deficiency anemia, unspecified Category: Medical Qualifiers: Iron deficiency anemia type: chronic blood loss Qualified Code(s): D50.0 - Iron deficiency anemia secondary to blood loss (chronic) Plan: On iron. (4) Hyperlipidemia: Code(s): E78.5 - Hyperlipidemia, unspecified Category: Medical Qualifiers: Hyperlipidemia type: mixed hyperlipidemia Qualified Code(s): E78.2 - Mixed hyperlipidemia Plan: Diet controlled. We will monitor. (5) GERD (gastroesophageal reflux disease): Code(s): K21.9 - Gastro-esophageal reflux disease without esophagitis Category: Medical Plan: Currently well-controlled with pantoprazole. (6) Severe obesity (BMI >= 40): Code(s): E66.01 - Morbid (severe) obesity due to excess calories Category: Medical Plan: We spent extensive time discussing diet and different programs that she could try such as weight watchers, noom, my fitness pal. We discussed reducing carbohydrate and sugar intake and increasing protein. Orders: Orders IRON PROFILE Today D50.0 - Iron deficiency anemia secondary to blood loss (chronic), E66.01 - Morbid (severe) obesity due to excess calories, E78.2 - Mixed hyperlipidemia, I10 - Essential (primary) hypertension, K21.9 - Gastro-esophageal reflux disease without esophagitis Lipid Panel Today D50.0 - Iron deficiency anemia secondary to blood loss (chronic), E66.01 - Morbid (severe) obesity due to excess calories, E78.2 - Mixed hyperlipidemia, I10 - Essential (primary) hypertension, K21.9 - Gastro-esophageal reflux disease without esophagitis TSH reflex Free T4 Today D50.0 - Iron deficiency anemia secondary to blood loss (chronic), E66.01 - Morbid (severe) obesity due to excess calories, E78.2 - Mixed hyperlipidemia, I10 - Essential (primary) hypertension, K21.9 - Gastro-esophageal reflux disease without esophagitis Vitamin B12 and Folate Today D50.0 - Iron deficiency anemia secondary to blood loss (chronic), E66.01 - Morbid (severe) obesity due to excess calories, E78.2 - Mixed hyperlipidemia, I10 - Essential (primary) hypertension, K21.9 - Gastro-esophageal reflux disease without esophagitis Complete Blood Count Auto Diff Today D50.0 - Iron deficiency anemia secondary to blood loss (chronic), E66.01 - Morbid (severe) obesity due to excess calories, E78.2 - Mixed hyperlipidemia, I10 - Essential (primary) hypertension, K21.9 - Gastro-esophageal reflux disease without esophagitis [employer]. Panel Fast Today D50.0 - Iron deficiency anemia secondary to blood loss (chronic), E66.01 - Morbid (severe) obesity due to excess calories, E78.2 - Mixed hyperlipidemia, I10 - Essential (primary) hypertension, K21.9 - Gastro-esophageal reflux disease without esophagitis Ferritin Today D50.0 - Iron deficiency anemia secondary to blood loss (chronic), E66.01 - Morbid (severe) obesity due to excess calories, E78.2 - Mixed hyperlipidemia, I10 - Essential (primary) hypertension, K21.9 - Gastro-esophageal reflux disease without esophagitis UA CC w/rflx Micro + Cult Today D50.0 - Iron deficiency anemia secondary to blood loss (chronic), E66.01 - Morbid (severe) obesity due to excess calories, E78.2 - Mixed hyperlipidemia, I10 - Essential (primary) hypertension, K21.9 - Gastro-esophageal reflux disease without esophagitis, Z13.220 - Encounter for screening for lipoid disorders
[2024-10-27 08:12] VITALS: BP 126/96; PULSE 88; RESP 14; O2SAT 99
[2024-10-27 08:18] VITALS: BP 112/86
== END 2024-10-27 09:01 | disposition home or self-care (01) ==
PROVIDERS: PCP Physician Assistant; Visit Provider Physician Assistant
DX: Z00.00 Encounter for general adult medical examination without abnormal findings (principal); E66.01 Morbid (severe) obesity due to excess calories; I10 Essential (primary) hypertension; D50.0 Iron deficiency anemia secondary to blood loss (chronic); E78.2 Mixed hyperlipidemia; K21.9 Gastro-esophageal reflux disease without esophagitis

== ENCOUNTER → 2024-10-27 07:45 | Outpatient (BNVA) | payer OTHER, SELFPAY | PROVIDERS: PCP Family Medicine; Visit Provider Physician Assistant | DX: Z00.00 Encounter for general adult medical examination without abnormal findings (principal); I10 Essential (primary) hypertension; D50.0 Iron deficiency anemia secondary to blood loss (chronic); E78.2 Mixed hyperlipidemia; K21.9 Gastro-esophageal reflux disease without esophagitis; E66.01 Morbid (severe) obesity due to excess calories; Z79.899 Other long term (current) drug therapy | CPT/HCPCS: 96127 ==

== ENCOUNTER 2024-12-07 07:41 | Outpatient (REF) | payer OTHER, SELFPAY | END 2024-12-07 07:42 | disposition home or self-care (01) | LOC: HO.LNP 07:41 | PROVIDERS: PCP Physician Assistant; Visit Provider Obstetrics & Gynecology | DX: Z01.419 Encounter for gynecological examination (general) (routine) without abnormal findings (principal); N95.0 Postmenopausal bleeding | CPT/HCPCS: 58100; 88305 ==

== ENCOUNTER 2024-12-07 07:41 | Outpatient (AMB) | payer OTHER, SELFPAY ==
--- NOTE | 2024-12-07 08:08 | A.OFFVIS_ITS ---
Vital Signs 12/07/24 08:14 Height 5 ft 3 in Weight 240 lb BMI 42.5 BP 122/76 Intake Visit Reasons: PMB/EMB Allergies apple Allergy (Severe, Verified 10/27/24 08:07) throat swelling adhesive tape Allergy (Intermediate, Verified 10/27/24 08:07) skin tear No Known Drug Allergies Allergy (Unknown, Verified 10/27/24 08:07) none bandaid Allergy (Unknown, Uncoded 10/27/24 08:07) skin redness HPI Comments Details: Presenting for annual exam. Complaining of an episode of vaginal bleeding that lasted for 1 week in 10/18 The patient had an episode of vaginal bleeding ultrasound in 01/14 showed an endometrial stripe of 11 mm, this was followed by endometrial biopsy in 03/16 which showed inactive endometrium with no evidence of endometrial hyperplasia and/or malignancy. Since then the patient has been amenorrheic with no recurrent episodes of vaginal bleeding till 10/18 Last Pap/HPV was negative in 01/14 Last Mammogram Last Colonoscopy was in 04/16 [facility] Medical History Pre-op examination Severe obesity (BMI >= 40) GABBY (iron deficiency anemia) HTN (hypertension), benign Hyperlipidemia Perimenopausal Gallstone Surgical History History of dental surgery H/O reduction mammoplasty History of laparoscopic cholecystectomy (~11/25/23) Family History Mother Cancer Breast cancer Hypercholesteremia Diabetes Cardiovascular disease Thyroid disorder Thyroid cancer Lung cancer Father Cancer Lung cancer HTN (hypertension) Family/Other Cancer Maternal Grandmother Clotting disorder Cardiovascular disease Paternal Grandmother Clotting disorder Social History Housing: House Are you a primary assistant child care teacher to a significant other at home: No Do you presently have visiting nurse or other home services: No Alcohol intake: current Alcohol intake frequency: holidays/special occasions only Patient Tobacco Use Status: Never used Tobacco e-Cigarette/Vaping Use: Never Used service: No Current occupational status: employed Current occupation: [employer] Current occupational exposures/hazards: No Cognitive needs: No Hearing needs: No Vision needs: Yes Review of Systems Const All systems reviewed & are unremarkable except as noted in HPI and below Card Reports as per HPI Resp Reports as per HPI GI Reports as per HPI and Reports no additional complaints Reports as per HPI Physical Exam Vital Signs: Last Vital Signs BP 122/76 12/07/24 08:14 BMI result Body Mass Index 42.5 Const General: cooperative, healthy appearing and comfortable Chest Chest palpation & inspection: normal inspection of the chest and normal palpation of entire chest wall Breast/axilla inspection: normal inspection of the breasts and normal inspection of the axillae Breast/axilla palpation: normal palpation of the breasts, normal palpation of the axillae and no axillary lymphadenopathy Resp Effort & Inspection: normal respiratory effort Auscultation: clear to auscultation bilaterally Percussion: percussion normal Cardio Palpation: normal PMI Rate: regular rate Rhythm: regular rhythm Heart sounds: no murmurs and no rubs Peripheral pulses: Peripheral pulses 2+ throughout GI Inspection: Yes normal to inspection Palpation (GI): Soft to palpation, nontender, no guarding, not rigid and No hepatosplenomegaly present Percussion: Yes normal to percussion Auscultation: normal bowel sounds Rectal Exam - Female: deferred General: Yes bladder normal to palpation External Female Exam: No lesion Speculum Exam - Vagina: normal appearance of the vagina, normal palpation, norm al vaginal discharge and not erythematous Speculum Exam - Cervix: normal appearance of the cervix and normal palpation Bimanual exam- vagina & uterus: normal bimanual exam, normal palpation, uterine size normal, bladder normal to palpation, consistency normal and normal palpation Bimanual Exam- Adnexa, other: normal adnexae, no masses and no tenderness Office Procedures Endometrial Biopsy Details: The patient was counseled regarding the indication and benefits of endometrial sampling to rule out endometrial pathology including not limited to endometrial hyperplasia or endometrial cancer and others; The alternatives (Either do nothin g vs. hysteroscopy D&C) & the risks were discussed with the patient including but not limited: pain, uterine perforation, bleeding, infection, possible injury to bladder, bowel, ureter, possible need for blood transfusion with all its possible risks. The patient verbalized understanding all questions answered and signed consent. The patient was placed into the dorsal lithotomy position; a speculum was inserted in the vagina. Using aseptic technique for the procedure, the cervix was cleansed with Betadine. The anterior lip of the cervix was grasped with a single tooth tenaculum. The uterus was sounded to 7 cm with a 4 mm Pipelle was used. Tissues samples were obtained and placed in formalin, in a patient labeled container and sent to the pathology department. At the end of the procedure, there was minimal bleeding noted The patient tolerated the procedure well and was discharged in good condition with the following instructions: Nothing in the vagina until the bleeding stops. No sex until the bleeding stops, to call if any of the following occurs: fever (>100.4), flu-like symptoms, abdominal pain, heavy bleeding, four smelling vaginal discharge. The patient was instructed to schedule a Follow up appointment in 2 weeks to discuss pathology results of the biopsy and treatment options. This note was generated with a voice recognition program. Some errors may have been overlooked during the review of this note. Sometimes these errors may affect the content or meaning of a given sentence. [id number] Biopsy Assessment & Plan Assessment & Plan (1) Well woman exam: Code(s): Z01.419 - Encounter for gynecological examination (general) (routine) without abnormal findings Category: Medical Plan: Co testing not indicated this year. Counseled the patient about the recommended dietary allowance of 1200 mg of Calcium & 600 IU of vitamin D. Mammogram ordered. The patient was instructed to perform monthly self-breast exams and schedule annual exam in a year. All questions answered and the patient verbalized understanding. (2) Postmenopausal bleeding: Code(s): N95.0 - Postmenopausal bleeding Category: Medical Plan: Discussed with the patient the differential diagnosis of post menopausal bleeding with normal pelvic exam including but not limited to, endometrial hyperplasia, cancer, polyps and other causes;recommended ultrasound to measure the endometrial stripe; discussed with the patient that if the endometrial thickness is 4 mm or less the negative predictive value of endometrial pathology is 99%, otherwise If endometrial thickness is more than 4 mm will proceed with endometrial sampling versus hysteroscopy D&C polypectomy depending on the ultrasound findings. Instructed the patient to schedule an ultrasound with a follow-up appointment in 2 weeks. All questions answered, the patient verba lized understanding and agreed with the plan. This note was generated with a voice recognition program. Some errors may have been overlooked during the review of this note. Sometimes these errors may affect the content or meaning of a given sentence. Orders: Orders MM tomosynthesis screening BI Today Z12.31 - Encounter for screening mammogram for malignant neoplasm of breast AMB Endometrial Biopsy Today N95.0 - Postmenopausal bleeding US pelvic and transvaginal Today N95.0 - Postmenopausal bleeding Coding Level of Care Code Est Pt Level 4 (68540) Procedure Only Diagnoses Well woman exam Z01.419 Postmenopausal bleeding N95.0 CPT Codes Endometrial Biopsy - CPT: 59862-[id number] Biopsy ([id number])
[2024-12-07 08:14] VITALS: BP 122/76; BMI 42.5
== END 2024-12-07 09:12 | disposition home or self-care (01) ==
PROVIDERS: PCP Physician Assistant; Visit Provider Obstetrics & Gynecology
DX: N95.0 Postmenopausal bleeding (principal)
CPT/HCPCS: 58100; 99214

== ENCOUNTER 2024-12-30 12:41 | Outpatient (REF) | payer OTHER, SELFPAY ==
--- NOTE | ~2024-12-30 | US_ITS ---
EXAMINATION: US PELVIS TRANSABDOMINAL AND TRANSVAGINAL HISTORY: N95.0 - Postmenopausal bleeding COMPARISON: Comparison is made with the prior examination dated 01/20/2024. TECHNIQUE: Transabdominal and endovaginal real-time 2D aguila-scale ultrasound was performed. FINDINGS: Uterus: The uterus is normal in size, measuring 9.4 x 4.5 x 4.3 cm. Myometrium has a normal echotexture. No fibroids are identified. Endometrium: The endometrial stripe measures 5 mm in thickness. Right ovary: The right ovary is not identified. Left ovary: The left ovary is not identified. Pelvic fluid: none. US/US pelvic and transvaginal IMPRESSION: The uterus is unremarkable. The endometrial stripe is not thickened. The ovaries are not identified. Electronically signed by: Diomedes Duarte MD 12/30/2024 01:24 PM EDT
== END 2024-12-30 12:42 | disposition home or self-care (01) ==
LOC: HO.US 12:41
PROVIDERS: PCP Physician Assistant; Visit Provider Obstetrics & Gynecology
DX: N95.0 Postmenopausal bleeding (principal)
CPT/HCPCS: 76830; 76856

== ENCOUNTER → 2024-12-30 12:43 | Outpatient (BNV) | payer OTHER, SELFPAY | PROVIDERS: PCP Physician Assistant; Visit Provider Radiology Diagnostic Radiology | DX: N95.0 Postmenopausal bleeding (principal) | CPT/HCPCS: 76830; 76856 ==

== ENCOUNTER 2025-01-05 07:29 | Outpatient (AMB) | payer OTHER, SELFPAY ==
--- NOTE | 2025-01-05 07:30 | MHC.OFFVIS ---
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 The patient has no complaints, no vaginal bleeding, no feverishness chills or abdominal pain. The endometrial biopsy pathology report showed the following: Superficial strips of benign endometrium; no atypia or hyperplasia identified Pelvic ultrasound done on 12/30/24 showed the following: Uterus: The uterus is normal in size, measuring 9.4 x 4.5 x 4.3 cm. Myometrium has a normal echotexture. No fibroids are identified. Endometrium: The endometrial stripe measures 5 mm in thickness. Right ovary: The right ovary is not identified. Left ovary: The left ovary is not identified. Pelvic fluid: none. [facility] Medical History Pre-op examination Severe obesity (BMI >= 40) GABBY (iron deficiency anemia) HTN (hypertension), benign Hyperlipidemia Perimenopausal Gallstone Surgical History History of dental surgery H/O reduction mammoplasty History of laparoscopic cholecystectomy (~11/25/23) Family History Mother Cancer Breast cancer Hypercholesteremia Diabetes Cardiovascular disease Thyroid disorder Thyroid cancer Lung cancer Father Cancer Lung cancer HTN (hypertension) Family/Other Cancer Maternal Grandmother Clotting disorder Cardiovascular disease Paternal Grandmother Clotting disorder Social History Housing: House Are you a primary career services manager to a significant other at home: No Do you presently have visiting nurse or other home services: No Alcohol intake: current Alcohol intake frequency: holidays/special occasions only Patient Tobacco Use Status: Never used Tobacco e-Cigarette/Vaping Use: Never Used service: No Current occupational status: employed Current occupation: [employer] Current occupational exposures/hazards: No Cognitive needs: No Hearing needs: No Vision needs: Yes Review of Systems Const All systems reviewed & are unremarkable except as noted in HPI and below Reports as per HPI and Reports no additional complaints GI Reports no additional complaints Reports no additional complaints Telehealth Telehealth Telehealth Platform: Telephone Location of provider rendering services: practice address Location of patient: address on file Patient Identification confirmed using: Name, : Yes Telehealth method: video Patient verbally consented to treatment: Yes Patient verbally consented to billing insurance company: Yes Patient informed of any privacy concerns related to visit: Yes Minutes spent on Phone/Video with Pt.: 2 Assessment & Plan Assessment & Plan (1) Postmenopausal bleeding: Code(s): N95.0 - Postmenopausal bleeding Category: Medical Plan: Discussed with the patient the results of the endometrial biopsy. Discussed with the patient the sensitivity, specificity, positive and negative predictive value, of endometrial biopsy in detecting endometrial pathology including but not limited to endometrial hyperplasia, cancer and other pathology; instructed the patient to call in case vaginal bleeding recurs, the next step will be to proceed with a diagnostic hysteroscopy/D&C for further endometrial sampling evaluation to rule out endometrial pathology. All questions answered and the patient verbalized understanding and agreed with the plan. I spent a total of 20 minutes reviewing the chart, talking to the patient via video and documenting in the medical record. Coding Level of Care Code Tele Est Pt Level 3 (15897) Diagnoses Postmenopausal bleeding N95.0
== END 2025-01-05 08:11 | disposition home or self-care (01) ==
LOC: HO.HWS 07:29
PROVIDERS: PCP Physician Assistant; Visit Provider Obstetrics & Gynecology
DX: N95.0 Postmenopausal bleeding (principal)
CPT/HCPCS: 99213

== ENCOUNTER → 2025-01-05 07:29 | Outpatient (BNVA) | payer OTHER, SELFPAY | PROVIDERS: PCP Physician Assistant; Visit Provider Obstetrics & Gynecology ==